=== PATIENT | male | born 1945 | race Caucasian/White ===

== ENCOUNTER 2024-11-25 22:07 | Inpatient (IN) | payer MEDICARE, OTHER, SELFPAY ==
[2024-11-25] VITALS (12 sets, daily range): BP systolic 143–185; BP diastolic 74–119; BMI 21.6; BMI 23.8
[2024-11-25 13:52] LABS: Hematocrit 40.9 % (39.0-52.0); Hemoglobin 13.6 g/dL (13.0-18.0); Mean Corp Hgb Conc. 33.3 g/dL (33.0-37.0); Mean Corpuscular Volume 88.1 fL (80.0-94.0); Nucleated Red Blood Cells % 0 % (-); Platelet Count 305 10^3/uL (130-400); Red Cell Dist. Width 18.1 % (11.5-14.5)
[2024-11-25 14:11] LABS: ALT (SGPT) 30 U/L (0-50); AST (SGOT) 21 U/L (17-59); Albumin 4.4 g/dl (3.5-5.0); Alkaline Phosphatase 75 U/L (38-126); Blood Urea Nitrogen 14 mg/dl (9-20); Calcium 8.8 mg/dl (8.4-10.2); Carbon Dioxide 19 mmol/L (22-30); Chloride 110 mmol/L (98-107); Glucose 147 mg/dl (70-99); Potassium 4.1 mmol/L (3.5-5.1); Sodium 140 mmol/L (135-145); Total Protein 8.5 g/dl (6.3-8.2); eGFR > 60.00
[2024-11-25 14:22] LABS: Troponin I 0.021 ng/ml
--- NOTE | 2024-11-25 18:20 | ED.GENMED ---
History of Present Illness
General
Chief Complaint: Back Pain
Source: patient, spouse and family
Exam Limitations: none
Time Seen by Provider: 11/25/24 17:59
Nursing documentation reviewed up to this point in time: agreed with
History of Present Illness
History of Present Illness:
Patient to ED accompanied by daughter and spouse. Daughter states she was with patient yesterday and he was feeling well. Overnight he developed vomiting. Today daughter tried to speak with him over the phone but he seemed confused. He is
complaining of back pain. Brought to ED via EMS for eval. Daughter also notes that he has an infection on his left forearm. Unknown cause. He was seen at on saturday. I&D performed, placed on Bactrim DS and Mupiricin ointment. Still with
drainage but less than day 1. No surrounding erythema.
Past History
Past History
ED Past Medical History: Cancer (multiple myeloma), HTN and Hypercholesterolemia
ED Past Surgical History: Orthopedic
Review of Systems
Review of Systems
Allergies reviewed?: Yes
All Other Systems: ROS reviewed and negative except as documented in HPI and ROS
Constitutional: Reports no symptoms
EENT: Reports no symptoms
Respiratory: Reports no symptoms
Cardiac: Reports no symptoms
ABD/GI: Reports vomiting
: Reports no symptoms
Musculoskeletal: Reports back pain
Skin: Reports other (abscess left forearm)
Neurological: Reports other (confused)
Psychiatric: Reports no symptoms
Phy Exam
General Physical Exam
General Presentation: moderate distress
General age: appears stated age
General Skin: warm and dry
General Habitus: normal
General Mental: alert
Cardiovascular Exam
Cardiovascular Exam: regular rate/rhythm and no edema
Pulmonary Exam
Pulmonary Exam: lungs clear and no respiratory distress
Gastrointestinal Exam
Gastrointestinal Exam: normal bowel sounds, non tender, soft and no organomegaly
Musculoskeletal Exam
Musculoskeletal Exam: full ROM and neuro vasc intact
Skin Exam
Skin Exam: warm/dry and other (abscess left lateral forearm. I&D saturday at , currently on Bactrim. Small amt of yellow discharge from site, culture obtained. No surrounding erythema. Minimal pain)
Psychiatric Exam
Psychiatric Exam: other (confused)
Course
Orders/Labs/Results
Orders:
Orders
11/25/24 13:29
Electrocardiogram (*1) Urgent
Reason for Study: Chest Pain
EKG- Treatment ONCE
11/25/24 13:37
Complete Blood Count/With Diff Urgent
Comprehensive Metabolic Panel Urgent
Troponin I Urgent
11/25/24 15:08
CT Head W/o Iv Contrast Urgent
Comment:
Reason For Exam: confusion
11/25/24 18:19
0.9% Sodium Chloride 1000 ml [Nss] 1,000 ml IV BOLUS
11/25/24 18:53
Urinalysis Reflex To Culture Urgent
Date Specimen was Collected: 11/25/24
Time Specimen was Collected: 18:53
Urine Microscopic Reflex Cult Urgent
Urine Culture Urgent
DOMINICK Source: U
Specimen Description:
Date Specimen was Collected: 11/25/24
Time Specimen was Collected: 18:53
Ketorolac [Toradol] 15 mg IV NOW STA
11/25/24 18:54
Wound Culture [Wound/Abscess/Other Culture] Urgent
DOMINICK Source: Arm
Specimen Description: Left
Date Specimen was Collected: 11/25/24
Time Specimen was Collected: 18:53
11/25/24 19:06
Lactic Acid Urgent
Blood Culture Urgent
DOMINICK Source: Blood/Venous
Specimen Description:
11/25/24 19:17
Blood Culture Urgent
DOMINICK Source: Blood/Venous
Specimen Description:
11/25/24 19:27
CT Abd/pel Without Iv Or Oral Urgent
Comment:
Reason For Exam: left flank pain
11/25/24 19:37
Acetaminophen [Tylenol/Feverall] 650 mg .ROUTE .STK-MED ONE
11/25/24 19:39
Cefepime HCl [Maxipime] 2,000 mg IV NOW STA
11/25/24 19:40
Acetaminophen [Tylenol/Feverall] 650 mg RECTAL NOW STA
11/25/24 21:35
Admit/Transfer Patient As Directed
Co-Sign Provider:
Level of Care: Inpatient admission
Assign to:: Medical/Surgical
Physician / Group: Ana
Diagnosis: pyelonephritis
Reason for Hospitalization: severe urinary tract infection
Expected length of stay greater than two midnights?: Yes
ELOS- Estimated Length of Stay in days: 2
I certify the patient meets the requirements for IP care: Yes
PRN Pain Medication Management As Directed
May give lesser potent ordered pain med per pt: Yes
preference::
Protocol:: Medication orders for pain may be administered in a
manner that supports deferring to patient preference
when the pt is:
- Requesting an ordered lesser potent pain medication.
Least to most potent pain medications are defined
as: acetaminophen < NSAID < tramadol < opioids
(morphine, oxycodone, hydromorphone).
- Requesting a lesser dose of the same medication IF
ORDERED.
- Requesting a less intrusive route of administration
if both routes are prescribed by the provider (PO <
IV).
11/25/24 21:37
Code Status As Directed
Resuscitation Status: Full Code
11/25/24 22:00
Flush (0.9% Sodium Chloride) [Flush (Nss)] See Dose Instructions IV PER PROTOCOL
Abnormal Lab Results
11/25/24 11/25/24
13:37 18:53
WBC 19.7 H 10^3/uL
(4.8-10.8)
RBC 4.64 L 10^6/uL
(4.70-6.10)
RDW 18.1 H %
(11.5-14.5)
Abs Immat Gran (auto) 0.1 H 10^3/uL
(0-0.05)
Absolute Neuts (auto) 18.4 H 10^3/uL
(1.4-6.5)
Absolute Lymphs (auto) 0.2 L 10^3/uL
(1.2-3.4)
Absolute Monos (auto) 0.9 H 10^3/uL
(0.1-0.6)
Immature Gran % 0.7 H %
(0-0.5)
Neutrophils % 93.4 H %
(42.2-75.2)
Lymphocytes % 0.9 L %
(20.5-51.1)
Chloride 110 H mmol/L
(98-107)
Carbon Dioxide 19 L mmol/L
(22-30)
Glucose 147 H mg/dl
(70-99)
Total Protein 8.5 H g/dl
(6.3-8.2)
Ur Occult Blood Reflex 3+ A
(Negative)
Leukocyte Esterase Rfl 3+ A
(Negative)
Urine RBC 3-6 A /HPF
(0-2)
Urine WBC (Reflex) 40-50 A /HPF
(0-5)
Urine Bacteria (Reflex) Few A
(Negative)
Urine Albumin (Reflex) 3+ A
(Neg - Trace)
11/25/24 13:37
11/25/24 13:37
Vital Signs
Initial and Last Documented VS:
Initial Vital Signs
Temp Pulse Resp BP Pulse Ox
98.2 F 96 16 174/97 97
11/25/24 13:25 11/25/24 13:25 11/25/24 13:25 11/25/24 13:25 11/25/24 13:25
Last Documented Vital Signs
Temp Pulse Resp BP Pulse Ox
100.1 F 72 17 157/75 97
11/25/24 21:27 11/25/24 21:15 11/25/24 21:15 11/25/24 21:00 11/25/24 21:15
*Pulse Oximetry
SaO2: 96
Oxygen Mode of Delivery: Room air
Patient hypoxic: no
*Critical Care Note
Total Time (30-74mins, 75-104mins- exclusive of procedures): Not Applicable
Update Note
Update Note:
Patient brought to ED for fever, confusion, weakness. Symptoms began with vomiting overnight. Family reports increasing weakness throughout the day and fever. Labs reviewed/ WBC 19, lactic normal. UA consistent with UTI. antibiotics started in
dept. CT report reviewed with patient and family. No evidence of obstruction, hydronephrosis or pyeloneprosis. Will be admitted to hospitalist. He has an abscess on left forearm that was drained on saturday. SMall amt of drainage noted tonight. No
surrounding erythema. Cuture sent.
ED Attending Note
-
Portions of this chart may have been created with voice recognition software.� Occasional wrong word or��sound alike� substitutions may have occurred due to the inherent limitations of voice recognition software.
Discharge Plan
Departure
Patient Disposition: Admit
Date of Disposition: 11/25/24
Time of Disposition: 20:34
Presentation/result/management discussed w/ accepting MD/DO: Hospitalist
Patient with high blood pressure during this ER visit?: No
Condition: Good
Covid-19: Not Applicable
Discharge Problem:
UTI (urinary tract infection)
Prescriptions:
No Action
latanoprost 0.005 % drops
1 drp BOTH EYES HS
sertraline 100 mg Tablet
100 mg PO BID
methylprednisolone 4 mg Tablet
4 mg PO BID
amlodipine 5 mg Tablet
5 mg PO DAILY
sulfamethoxazole-trimethoprim 800-160 mg Tablet
1 tab PO BID
Patient Comments:
11/25/2024, filled on 11/19/2024 and instructed to take 1 tablet BID for 10 days.
simvastatin 40 mg Tablet
40 mg PO HS
pantoprazole 20 mg Tablet,Delayed Release (Dr/Ec)
20 mg PO HS
tamsulosin 0.4 mg Capsule
0.4 mg PO BID
levothyroxine 50 mcg Tablet
50 mcg PO DAILY
gabapentin 300 mg Capsule
300 mg PO BID
diclofenac sodium 75 mg tablet,delayed release (DR/EC)
75 mg PO BID
omeprazole 20 mg Tablet,Delayed Release (Dr/Ec)
20 mg PO DAILY
Incruse Ellipta 62.5 mcg/actuation Blister With Device
1 inh INHALATION R DAILY
Fish Oil
1 cap PO BID
cyanocobalamin (vitamin B-12)
1 tab PO DAILY
Referrals:
Henrry Ryan MD [Family Provider, Internal Medicine]
Interventions
Interventions:
*Risk Screen - Suicide Last Done: 11/25/24 13:25
*Neglect/Abuse Screening Last Done: 11/25/24 13:25
ED-Musculoskeletal Assessment Last Done: 11/25/24 18:50
Discharge Date and Time
Print Language: KHMER
[2024-11-25 19:12] LABS: Urine Character Slightly Cloudy (Clear)
[2024-11-25] MEDS: TORADOL 15 MG IV (19:12)
[2024-11-25] MEDS: NSS 1000 IV (19:14)
[2024-11-25 19:32] LABS: Urine White Cell 40-50 /HPF (0-5)
[2024-11-25] MEDS: TYLENOL/FEVERALL 650 MG RECTAL (19:41)
[2024-11-25] MEDS: MAXIPIME 2000 MG IV (20:11)
--- NOTE | 2024-11-25 21:11 | HPS.HSE ---
Family Physician
-
Family Physician: Henrry Ryan
Chief Complaint
-
Back pain, fevers and confusion
History of Present Illness
This is a 79-year-old male who has a past medical history significant for hypertension, hyperlipidemia, GERD, hypothyroid, BPH, chronic back pain who presents to the emergency department from home with confusion and was found to be febrile in the
emergency department.
Patient has history of left for her abscess on Saturday. She was started on Bactrim on Saturday. She had a follow-up on Saturday with increasing swelling and erythema and had I&D. She has continued to be on Bactrim since then.
He reported that yesterday he had chills, back pain, nausea vomiting. Patient states he has been having urinary symptoms including urinary frequency and dysuria. He denies any hematuria. He denies history of UTIs and history of kidney stones. He
has not been having any diarrhea.
He denies any worsening redness of his forearm but states that the redness has not improved.
Patient called his daughter today and that while on the phone she noticed that he was incoherent but was requesting to go to the emergency department which is atypical for him.
He has otherwise been compliant with his medications, alert and orient x 3 at baseline and lives with his spouse with independence of ADLs.
On arrival in the emergency department he was initially afebrile, now has a temperature of 102.5. Blood pressure is stable at 150/70 with pulse of 76 and was satting 94% on room air. CT of the head was unremarkable. CT of the abdomen pelvis was
also mostly unremarkable with no evidence of nephrolithiasis or hydronephrosis, he does have some evidence of bladder cystitis. The noncontrast CT shows no biliary, gallbladder or liver or pancreatic abnormalities and no evidence of appendicitis
He has leukocytosis to 19,000 with normal hemoglobin and platelets. Electrolytes were normal. BUN/creatinine were stable. Glucose was normal.
UA was markedly positive with WBCs, leukocyte esterase and a few bacteria.
Medical History
Past Medical History
Past Medical History: Reports HTN, Hypercholesterolemia and Hypothyroidism
Past Surgical History: Reports Orthopedic (r Shoulder surgery)
Social History
Tobacco: Former Smoker
Alcohol: None
Drug: None
Personal:
Living: With Family
Employment: Retired
Family History
Family History: Not pertinent
Allergies / Home Medications
Allergies reflects when Allergies were last updated in [facility].
Home Medications with original date entered in [facility]
Allergy/Medication List:
Allergies
Allergy/AdvReac Type Severity Reaction Status Date / Time
No Known Allergies Allergy Unverified 11/25/24 13:28
Tamsulosin 0.4 mg capsule, 0. 8 mg p.o. daily
Simvastatin 40 mg tablet, 40 mg p.o. at bedtime
Sertraline 100 mg tablet, 200 mg p.o. daily
Omeprazole 20 mg tablet, 20 mg p.o. daily
Levothyroxine 50 mcg tablet, 50 mcg p.o. daily
Amlodipine 5 mg tablet, 5 mg p.o. daily
Review of Systems
-
Constitutional: Reports Chills
EENT: Reports No Symptoms
Respiratory: Reports No Symptoms
Cardiac: Reports No Symptoms
Abdomen/GI: Reports Vomiting
: Reports Dysuria, Flank Pain and Incontinence; Denies Dark Urine
Musculoskeletal: Reports Other (No back pain)
Skin: Reports Other (Left forearm abscess status post I&D, open wound incision with surrounding erythema, no induration)
Neurological: Reports No Symptoms
Endocrine: Reports No Symptoms
Hematologic/Lymphatic: Reports No Symptoms
Psych: Reports No Symptoms
Physical Exam
Vital Signs
Vital Signs
Temp Pulse Resp BP Pulse Ox
102.5 F H 76 22 157/74 94
11/25/24 19:40 11/25/24 20:30 11/25/24 20:30 11/25/24 20:16 11/25/24 20:30
Physical Exam
General: Well Developed, Well Nourished and No Apparent Distress
HEENT: NormoCephalic, Moist mucous membranes and Atraumatic
Respiratory: Clear
Cardiac: S1/S2 and Regular Rhythm; No Murmur or Rub
GI: Soft, Non Tender, Non Distended and Normal Bowel Sounds; No Organomegaly
Rectal: Deferred by Provider
Musculoskeletal: No Clubbing, No Cyanosis and No Edema
Skin: Rash (A small nodular lesion on the left forearm with slight palpable stool at drainage. No surrounding erythema. No induration. Minimally tender to palpation.)
Neuro: AO x 3 and Nonfocal/grossly intact
Psych: Calm
Laboratory Results
-
11/25/24 13:37
11/25/24 13:37
Laboratory Results
Lactic Acid 1.6 mmol/L (0.7-2.0) 11/25/24 19:06
Total Bilirubin 0.8 mg/dl (0.2-1.3) 11/25/24 13:37
AST 21 U/L (17-59) 11/25/24 13:37
ALT 30 U/L (0-50) 11/25/24 13:37
Alkaline Phosphatase 75 U/L (38-126) 11/25/24 13:37
Troponin I 0.021 ng/ml 11/25/24 13:37
Data Reviewed
-
CT Scan: Report Reviewed by me
Lab Data: Labs Reviewed by me
Old Records: Reviewed
Impression/Plan
-
IMPRESSION:
79-year-old with history of hypertension hyperlipidemia hypothyroid and BPH presenting to the emergency department with confusion and found to have a fever. In addition patient reports back pain/flank pain and urinary symptoms that started 1 day
ago with associated chills. There was associated nausea vomiting x 1. His abdominal exam is benign denies any diarrhea. LFTs normal. CT scan unremarkable. There are no stones and no urinary obstruction. There are also no intra-abdominal
pathologies but this was a noncontrast. CT of the head was negative. He has been on Bactrim for about 4 days. The abscess on the left forearm seems resolving without any drainage. He did have cultures done previously at urgent care and repeated
attempted cultures done in the ED. Labs notable for significant leukocytosis to 19 otherwise labs are stable and lactic acid is negative. UA is somewhat positive with leukocyte esterase and WBCs with few bacteria but negative nitrites. Given few
bacteria cannot rule out prostatitis. No recent instrumentation.
PLAN:
UTI/prostatitis -patient has been on Bactrim yet as developed this back pain and urinary symptoms consistent with prostatic versus cystitis. No risk factors for MRSA and no no risk factors for Pseudomonas. He is significantly ill but not
critically so.
- admit to telemetry
- blood cultures
- negative covid/flu
- urine cultures
- IV cefepime 2g q 12 for now
- monitor i/os and urinary retention
- continue IV fluids with LR
Left arm abscess - No drainable collection. No erythema. Unlikely source of sepsis.
- on cefepime
- s/p wound culture
- check mrsa swab
BPH
- continue tamulosin
Hypothyrod
- continue synthroid 50 mcg
DVT PPX - lovenox sq
Code status - Full Code
[2024-11-25] MEDS: PROTONIX PO (23:21)
[2024-11-25] MEDS: LR 1000 IV (23:27)
[2024-11-25] MEDS: PROTONIX 20 MG PO (23:27)
[2024-11-25] MEDS: LIPITOR 20 MG PO (23:27)
[2024-11-25] MEDS: ULTRAM 50 MG PO (23:27)
[2024-11-25] MEDS: XALATAN OPHTHALMIC SOLUTION 1 DROP BOTH EYES (23:38)
[2024-11-25] MEDS: TYLENOL 650 MG PO (23:54)
[2024-11-26] VITALS (7 sets, daily range): BP systolic 96–165; BP diastolic 54–83; PULSE 61; O2SAT 99; BMI 23.9
[2024-11-26] MEDS: MAXIPIME 1000 MG IV ×4 (01:17→19:57)
[2024-11-26] MEDS: STERILE WATER FOR INJECTION 10 ML IV ×4 (01:17→19:57)
[2024-11-26] MEDS: SYNTHROID 50 MCG PO (05:41)
[2024-11-26] MEDS: ULTRAM 50 MG PO ×3 (06:09→20:37)
[2024-11-26 06:50] LABS: Hematocrit 38.0 % (39.0-52.0); Hemoglobin 12.4 g/dL (13.0-18.0); Mean Corp Hgb Conc. 32.6 g/dL (33.0-37.0); Mean Corpuscular Volume 88.8 fL (80.0-94.0); Platelet Count 249 10^3/uL (130-400); Red Cell Dist. Width 17.9 % (11.5-14.5)
[2024-11-26 07:08] LABS: Blood Urea Nitrogen 13 mg/dl (9-20); Calcium 8.6 mg/dl (8.4-10.2); Carbon Dioxide 20 mmol/L (22-30); Chloride 111 mmol/L (98-107); Estimated Creatinine Clearance 86 ml/min; Glucose 115 mg/dl (70-99); Potassium 3.6 mmol/L (3.5-5.1); Sodium 140 mmol/L (135-145); eGFR > 60.00
[2024-11-26] MEDS: SPIRIVA RESPIMAT 2.5 MCG 2 PUFF INH (07:31)
[2024-11-26] MEDS: FLOMAX 0.8 MG PO (09:06)
[2024-11-26] MEDS: NEURONTIN 300 MG PO ×2 (09:07→19:55)
[2024-11-26] MEDS: NORVASC 5 MG PO (09:07)
[2024-11-26] MEDS: ZOLOFT 100 MG PO ×2 (09:07→19:56)
[2024-11-26] MEDS: VOLTAREN 75 MG PO ×2 (09:07→19:55)
[2024-11-26] MEDS: TYLENOL 650 MG PO ×2 (09:08→18:01)
[2024-11-26] MEDS: FLUSH (NSS) 2 FLUSH IV (09:08)
[2024-11-26] MEDS: SENOKOT-S 1 TABLET PO ×2 (09:16→19:56)
[2024-11-26] MEDS: LR 1000 IV ×2 (10:25→23:49)
--- NOTE | 2024-11-26 11:40 | W.PN.HOSP.TC ---
Today's Communication/Plan
-
ID eval
vancomycin added
await further culture data
IVF
Monitor for retention
trend wbc/fever curve
Assessment / Plan
Assessment / Plan
General: Well Developed, Well Nourished and No Apparent Distress
HEENT: NormoCephalic, Moist mucous membranes and Atraumatic
Respiratory: Clear
Cardiac: S1/S2 and Regular Rhythm; No Murmur or Rub
GI: Soft, Non Tender, Non Distended and Normal Bowel Sounds; No Organomegaly
Rectal: Deferred by Provider
Musculoskeletal: No Clubbing, No Cyanosis and No Edema
Skin: left forearm rash covered in dressing
Neuro: AO x 3 and Nonfocal/grossly intact
Psych: Calm
IMPRESSION:
79-year-old with history of hypertension hyperlipidemia hypothyroid and BPH presenting to the emergency department with confusion and found to have a fever. In addition patient reports back pain/flank pain and urinary symptoms that started 1 day
ago with associated chills. There was associated nausea vomiting x 1. His abdominal exam is benign denies any diarrhea. LFTs normal. CT scan unremarkable. There are no stones and no urinary obstruction. There are also no intra-abdominal
pathologies but this was a noncontrast. CT of the head was negative. He has been on Bactrim for about 4 days. The abscess on the left forearm seems resolving without any drainage. He did have cultures done previously at urgent care and repeated
attempted cultures done in the ED. Labs notable for significant leukocytosis to 19 otherwise labs are stable and lactic acid is negative. UA is somewhat positive with leukocyte esterase and WBCs with few bacteria but negative nitrites. Given few
bacteria cannot rule out prostatitis. No recent instrumentation.
PLAN:
Sepsis likely 2/2 UTI/prostatitis vs staph bacteremia (leukocytosis, fever, tachycardia)poa
patient has been on Bactrim yet as developed this back pain and urinary symptoms consistent with prostatic versus cystitis.
- blood cultures with [facility] currently-await for identification & susceptibility results. Unclear if contamination or not. Await data from micro lab
- negative covid/flu
- urine cultures
- IV cefepime. Vancomycin added.
- monitor i/os and urinary retention
- continue IV fluids with LR
- Check TTE
- ID eval
Left arm abscess - No drainable collection. No erythema.
- on cefepime
- s/p wound culture
- check mrsa swab
BPH With urinary retention
- continue tamulosin
-Bladder scan and straight cath protocol
Hypothyroid
- continue Synthroid 50 mcg
Chronic back pain/neuropathy
-cont home regimen
- OOB
Mood disorder
-cont sertraline
Primary HTN
-Cont norvasc
PT ordered
DVT PPX - lovenox sq
Code status - Full Code
Anticipated Discharge: > 48 hours
Subjective/Interval History
-
Date of Service: November 26, 2024
states of severe chills last night
states of back pain
require straight cath earlier
Objective Data
-
Labs:
Laboratory Results
11/26/24
06:15
WBC 18.6 H
Hgb 12.4 L
Hct 38.0 L
Plt Count 249
Sodium 140
Potassium 3.6
Chloride 111 H
Carbon Dioxide 20 L
BUN 13
Creatinine 0.6 L
Glucose 115 H
Calcium 8.6
Vital Signs:
Vital Signs
Temp Pulse Resp BP Pulse Ox
98.4 F 70 16 125/75 96
11/26/24 10:26 11/26/24 09:07 11/26/24 07:39 11/26/24 09:07 11/26/24 07:39
I&O
11/25/24 11/26/24 11/27/24
06:59 06:59 06:59
Intake Total 960 / 960 240 / 240
Output Total 695 / 695
Balance 265 / 265 240 / 240
Data Reviewed
-
Total Time Spent with Patient (in minutes): 55
--- NOTE | 2024-11-26 11:59 | PHA.VAN.IN ---
Assessment
- Assessment
Renal Function: Appears similar to baseline
Concomitant Antimicrobials: cefepime
AUC Dosing Plan
- Dosing Variables
Dosing Weight (kg): 63
Dosing CrCl (ml/min): 86
Vd coefficient (L/kg): 0.7
- Empiric Dosing
Maintenance Regimen: Vanc 750mg x1 now then Q12H starting at 1800 in lieu of load
Estimated AUC (mcg*h/mL): 466
Estimated Peak (mcg*h/mL): 28.5
Estimated Trough (mcg/ml): 12.4
Estimated Half Life (H): 9.1
- Monitoring
No levels ordered at this time: consider levels in next few days
Pharmacokinetics Vancomycin I
- -
Patient Age: 79
Patient Sex: Male
Vancomycin Day #: 1
Indication: Bacteremia
Requesting Provider: Dr. Marquez
Pertinent Antimicrobial Allergies:
NKDA
Height / Weight:
Height 5 ft 4 in
Actual Weight 63.163 kg
- Vital Signs / Lab Results
Temp Pulse Resp BP Pulse Ox
98.4 F 70 16 125/75 96
11/26/24 10:26 11/26/24 09:07 11/26/24 07:39 11/26/24 09:07 11/26/24 07:39
Lab Results - Hematology
11/25/24 11/26/24
13:37 06:15
WBC 19.7 H 18.6 H
Lab Results - Chemistry
11/25/24 11/26/24
13:37 06:15
BUN 14 13
Creatinine 0.7 0.6 L
Estimated Creat Clear 86
Albumin 4.4
11/25/24
19:06
Lactic Acid 1.6
Lab Results - Urine
11/25/24
18:53
Urine Nitrite (Reflex) Negative
Leukocyte Esterase Rfl 3+ A
Urine WBC (Reflex) 40-50 A
Ur Squamous Epith Cells 3-5
Urine Bacteria (Reflex) Few A
Microbiology Results
11/25/24 19:17 Blood Culture - Preliminary
Blood/Venous Staphylococcus aureus
Gram Stain - Preliminary
11/25/24 19:06 Blood Culture - Preliminary
Blood/Venous Positive culture in progress
Gram Stain - Preliminary
11/25/24 18:54 Gram Stain - Preliminary
Arm - Left
[2024-11-26] MEDS: VANCOCIN 150 IV ×2 (12:39→17:59)
--- NOTE | 2024-11-26 13:00 | PTCARENOTE ---
Pt's bladder scan result at 1215 17ml. RN repeated bladder scan at 1245 and result was 84ml. Pt has not voided since straight cath this am at 0615. Made Dr. Marquez aware of bladder scan result, will continue to monitor.
--- NOTE | 2024-11-26 16:59 | CM ---
Addendum entered by Jeanette Sherman 11/26/24 17:08:
Called Admissions and requested home address change; patient lives in [place], [place]
Original Note:
Met with patient and family ( and daughter Oliver) at bedside; initial assessment completed
Pharmacy verified: [facility] @ [address] [place] [address]
Patient lives w/ ; one story home; 1 step to enter; railing present; bathroom has walk in shower with grab bar and seat
PLOF: independent with ambulation, step to enter, and ADLs
is not able to care for him if needed; daughters live 45 minutes away
SNF utilization 2019 after joint replacement; no home health utilization
One of his daughters will transport him home
PT recommended home health; patient is agreeable; no agency preference; referral sent to [facility] via [facility]
Plan: Discharge to home when medically stable with home felicity services
--- NOTE | 2024-11-26 17:30 | PTCARENOTE ---
Addendum entered by Sue Estes 11/26/24 19:19:
Pt voided 100ml of may urine at 1800, slightly odorous, clear. Pt denies painful urination.
Original Note:
Pt's bladder scan at 1630 134ml, still has not voided today since straight cath this morning. BP 97/54 at 1500, asymptomatic. On reassessment, BP 102/54. Made Dr. Marquez aware of above, order to increase IVF, will monitor.
--- NOTE | 2024-11-26 17:56 | CON.ID ---
Consultation
-
Date/Time Consultation Requested:
Date/Time Consultation Performed: november
Performing Provider: Gabi Amador MD
Reason for Consultation: bacteremia
Chief Complaint / Past History
Chief Complaint
fever,sweats, chills with rigors, in the setting of severe back pain and concern for UTI
History of Present Illness
The patient was complaining of fever/chills in setting of recent unknown etiology arm infection and was given Bactrim for treatment// his symptoms worsened with vomiting and confusion and was brought to the ED for evaluation
Past History
Past Medical History: Cancer (stable multiple myeloma), HTN, Hypothyroidism (BPH ) and Venous Hypertension
Past Surgical History: Orthopedic (shoulder surgery)
Allergy History:
No Known Allergies Allergy (Unverified 11/25/24 13:28)
Medications Reviewed: Yes
Current Antibiotics:
Was on Bactrim at home and currently is on Vancomycin
Social History
Tobacco: Former Smoker
Alcohol: None
Drug: None
Personal:
Living: With Family
Employment: Retired
Family History
Family History: Not Pertinent
Review of Systems
Review of Systems
General: Fever, Chills and Other (vomiting, sweats)
Endocrine: Weakness and Fatigue
Musculoskeletal: Other (back pain)
Skin / Hair / Nails: Lesions (infection of right arm etology uncertain)
Psychological: Other (confusion)
All systems: All other systems were reviewed and were negative
Vital Signs
Temp Pulse Resp BP Pulse Ox
98.5 F 91 18 109/67 95
11/26/24 15:27 11/26/24 17:40 11/26/24 15:27 11/26/24 17:40 11/26/24 17:40
Physical Exam
Physical Exam
Constitutional: No Acute Distress, Well Developed, Comfortable, Acutely Ill and Non-toxic
Head: Normocephalic
Eyes: Pupils Equal, Pupils Round, No Conjunctival Hemorrhage and Sclera Anicteric
Pharynx: Benign
Oral: No Thrush and No Ulcers
Cardiovascular: Regular Rate
Pulmonary: Clear and Non Labored
Gastrointestinal: Soft, Non Tender, Non Distended, Decreased Bowel Sounds, No Rebound and No Guarding
Extremities: Other (left arm infection being treated with Bactrim prior to admission)
Skin: Warm and Dry (left arm infection)
Wound: Other (left arm infection)
Neurological: Awake, Alert, Oriented, AO x 3 and No Motor Deficits
Psychological: Calm
Lines: PIV
Lab / Diagnostic Study Results
11/26/24 06:15
11/26/24 06:15
Abs Immat Gran (auto) 0.1 10^3/uL (0-0.05) H 11/25/24 13:37
Absolute Neuts (auto) 18.4 10^3/uL (1.4-6.5) H 11/25/24 13:37
Absolute Lymphs (auto) 0.2 10^3/uL (1.2-3.4) L 11/25/24 13:37
Absolute Monos (auto) 0.9 10^3/uL (0.1-0.6) H 11/25/24 13:37
Absolute Basos (auto) 0.0 10^3/uL (0-0.2) 11/25/24 13:37
Immature Gran % 0.7 % (0-0.5) H 11/25/24 13:37
Neutrophils % 93.4 % (42.2-75.2) H 11/25/24 13:37
Lymphocytes % 0.9 % (20.5-51.1) L 11/25/24 13:37
Monocytes % 4.8 % (1.7-9.3) 11/25/24 13:37
Eosinophils % 0.0 % (0-6) 11/25/24 13:37
Basophils % 0.2 % (0-2) 11/25/24 13:37
Lactic Acid 1.6 mmol/L (0.7-2.0) 11/25/24 19:06
Ur Squamous Epith Cells 3-5 /LPF (Few) 11/25/24 18:53
Microbiology Results
Micro:
11/25/24 19:17 Blood Culture - Preliminary
Blood/Venous Staphylococcus aureus
Gram Stain - Preliminary
11/25/24 19:06 Blood Culture - Preliminary
Blood/Venous Positive culture in progress
Gram Stain - Final
11/25/24 18:54 Wound Culture - Pending
Arm - Left Gram Stain - Preliminary
11/26/24 00:00 MRSA Screen - Pending
Nose
11/25/24 18:53 Urine Culture - Pending
Urine
Assessment / Plan
1.Bacteremia with Staphylococcus unknown MRSA status ,fever, leukocytosis WBC 19.7 on admission T 102.5, Vancomycin for now pending culture sensitivities
2. Left arm infection etiology unknown by patient or family with dressing intact was taking Bactrim
3. History of Multiple Myeloma currently being observed without treatment
4. Multiple medical co-morbidities with HTN, BPH, hypothyroid,BPH, HLD
5. wound care for left forearm
6. Backpain with uncertain etiology
Care Review
Plan reviewed with: Other (discussed with family with priyank and sitting at bedside)
Total Time Spent with Patient (in minutes): 55
[2024-11-26] MEDS: LOVENOX 40 MG SC (18:01)
--- NOTE | 2024-11-26 19:03 | CON.ID ---
Consultation
-
Date/Time Consultation Requested: November
Date/Time Consultation Performed: November
Requesting Provider: Dr Marquez
Performing Provider: Gabi Amador MD
Reason for Consultation: bacteremia
Chief Complaint / Past History
Chief Complaint
admitted with back pain
History of Present Illness
The patient complained of back pain but family noted confusion and left forearm wound with etiology unknown which was being treated with Bactrim
Past History
Past Medical History: Cancer (multiple myeloma), Hypercholesterolemia, Hypothyroidism and Venous Hypertension (BPH)
Additional Past Surgical History:
left shoulder surgery
Allergy History:
No Known Allergies Allergy (Unverified 11/25/24 13:28)
Social History
Tobacco: Former Smoker
Alcohol: None
Drug: None
Personal:
Living: With Family
Employment: Retired
Family History
Family History: Not Pertinent
Review of Systems
Review of Systems
General: Fever, Chills and Other (sweats, rigors, back pain of severe nature)
Gasteroenterology: Weight Loss (not eating as much)
Musculoskeletal: Other (right shoulder pain)
All systems: All other systems were reviewed and were negative
Vital Signs
Temp Pulse Resp BP Pulse Ox
98.5 F 70 18 102/54 95
11/26/24 15:27 11/26/24 17:02 11/26/24 15:27 11/26/24 17:02 11/26/24 15:27
Physical Exam
Physical Exam
Constitutional: No Acute Distress, Well Developed, Comfortable and Non-toxic
Head: Normocephalic
Eyes: Pupils Equal, Pupils Round, No Conjunctival Hemorrhage and Sclera Anicteric
Pharynx: Benign
Oral: No Thrush and No Ulcers
Cardiovascular: Regular Rate
Pulmonary: Clear and Non Labored
Gastrointestinal: Soft, Non Tender, Non Distended, Normal Bowel Sounds, No Rebound and No Guarding
Extremities: Other (dressing on left arm at site of wound of unknown etiology)
Skin: Warm and Dry
Wound: None (left forearm)
Neurological: Awake, Alert, Oriented, AO x 3 and No Motor Deficits
Psychological: Calm
Lines: PIV
Lab / Diagnostic Study Results
11/26/24 06:15
11/26/24 06:15
Abs Immat Gran (auto) 0.1 10^3/uL (0-0.05) H 11/25/24 13:37
Absolute Neuts (auto) 18.4 10^3/uL (1.4-6.5) H 11/25/24 13:37
Absolute Lymphs (auto) 0.2 10^3/uL (1.2-3.4) L 11/25/24 13:37
Absolute Monos (auto) 0.9 10^3/uL (0.1-0.6) H 11/25/24 13:37
Absolute Basos (auto) 0.0 10^3/uL (0-0.2) 11/25/24 13:37
Immature Gran % 0.7 % (0-0.5) H 11/25/24 13:37
Neutrophils % 93.4 % (42.2-75.2) H 11/25/24 13:37
Lymphocytes % 0.9 % (20.5-51.1) L 11/25/24 13:37
Monocytes % 4.8 % (1.7-9.3) 11/25/24 13:37
Eosinophils % 0.0 % (0-6) 11/25/24 13:37
Basophils % 0.2 % (0-2) 11/25/24 13:37
Lactic Acid 1.6 mmol/L (0.7-2.0) 11/25/24 19:06
Ur Squamous Epith Cells 3-5 /LPF (Few) 11/25/24 18:53
Microbiology Results
Micro:
11/25/24 19:17 Blood Culture - Preliminary
Blood/Venous Staphylococcus aureus
Gram Stain - Preliminary
11/25/24 19:06 Blood Culture - Preliminary
Blood/Venous Positive culture in progress
Gram Stain - Final
11/25/24 18:54 Wound Culture - Pending
Arm - Left Gram Stain - Preliminary
11/26/24 00:00 MRSA Screen - Pending
Nose
11/25/24 18:53 Urine Culture - Pending
Urine
Assessment / Plan
1.Bacteremia with Staphylococcus unknown MRSA status ,fever, leukocytosis WBC 19.7 on admission T 102.5, Vancomycin for now pending culture sensitivities
2. Left arm infection etiology unknown by patient or family with dressing intact was taking Bactrim
3. History of Multiple Myeloma currently being observed without treatment
4. Multiple medical co-morbidities with HTN, BPH, hypothyroid,BPH, HLD
5. wound care for left forearm
6. Backpain with uncertain etiology
Care Review
Total Time Spent with Patient (in minutes): 45
[2024-11-26] MEDS: LIPITOR 20 MG PO (19:55)
[2024-11-26] MEDS: PROTONIX 20 MG PO (19:56)
[2024-11-26] MEDS: XALATAN OPHTHALMIC SOLUTION 1 DROP BOTH EYES (19:57)
[2024-11-27] MEDS: MAXIPIME 1000 MG IV ×4 (02:16→19:45)
[2024-11-27] MEDS: STERILE WATER FOR INJECTION 10 ML IV ×4 (02:16→19:49)
[2024-11-27] MEDS: ULTRAM 50 MG PO ×2 (04:16→18:22)
[2024-11-27] MEDS: SYNTHROID 50 MCG PO (04:16)
[2024-11-27 06:00] VITALS: BMI 24.8
[2024-11-27] MEDS: VANCOCIN 150 IV ×2 (06:12→18:22)
[2024-11-27 06:53] VITALS: BP 99/55
[2024-11-27] MEDS: SPIRIVA RESPIMAT 2.5 MCG 2 PUFF INH (07:30)
[2024-11-27 08:08] LABS: Hematocrit 31.9 % (39.0-52.0); Hemoglobin 10.4 g/dL (13.0-18.0); Mean Corp Hgb Conc. 32.6 g/dL (33.0-37.0); Mean Corpuscular Volume 89.6 fL (80.0-94.0); Nucleated Red Blood Cells % 0 % (-); Platelet Count 178 10^3/uL (130-400); Red Cell Dist. Width 17.8 % (11.5-14.5)
[2024-11-27 08:27] LABS: ALT (SGPT) 18 U/L (0-50); AST (SGOT) 17 U/L (17-59); Albumin 2.7 g/dl (3.5-5.0); Alkaline Phosphatase 56 U/L (38-126); Blood Urea Nitrogen 13 mg/dl (9-20); Calcium 7.9 mg/dl (8.4-10.2); Carbon Dioxide 20 mmol/L (22-30); Chloride 109 mmol/L (98-107); Estimated Creatinine Clearance 86 ml/min; Glucose 127 mg/dl (70-99); Potassium 3.6 mmol/L (3.5-5.1); Sodium 136 mmol/L (135-145); Total Protein 5.6 g/dl (6.3-8.2); eGFR > 60.00
--- NOTE | 2024-11-27 08:44 | PHA.VAN.FU ---
Vancomycin Assessment / Plan
- Assessment
Renal Function: Stable
WBC's are: Trending Down
In the past 24 hrs, patient has been: Afebrile
Concomitant Antimicrobials: cefepime
- Dosing Plan
Continue: Vanc 750mg Q12H
- Monitoring Plan
No level(s) ordered at this time: consider levels in next few days
- Follow Up
Pharmacy will continue to follow.
Vancomycin Follow UP
- -
Patient Age: 79
Patient Sex: Male
Vancomycin Day #: 2
Indication: Bacteremia
Requesting Provider: Dr. Marquez
Pertinent Antimicrobial Allergies:
NKDA
Height / Weight:
Height 5 ft 4 in
Actual Weight 65.544 kg
- Vital Signs / Lab Results
Temp Pulse Resp BP Pulse Ox
98.3 F 60 16 103/56 95
11/26/24 23:23 11/27/24 07:35 11/27/24 07:35 11/26/24 23:23 11/27/24 07:35
Lab Results - Hematology
11/25/24 11/26/24 11/27/24
13:37 06:15 07:05
WBC 19.7 H 18.6 H 8.5
Lab Results - Chemistry
11/25/24 11/26/24 11/27/24
13:37 06:15 07:05
BUN 14 13 13
Creatinine 0.7 0.6 L 0.6 L
Estimated Creat Clear 86 86
Albumin 4.4 2.7 L D
11/25/24
19:06
Lactic Acid 1.6
Microbiology Results
11/26/24 00:00 MRSA Screen - Final
Nose Staph aureus MRSA
11/25/24 19:06 Blood Culture - Preliminary
Blood/Venous Staphylococcus aureus
Gram Stain - Final
11/25/24 19:17 Blood Culture - Preliminary
Blood/Venous Staphylococcus aureus
Gram Stain - Preliminary
11/25/24 18:54 Gram Stain - Preliminary
Arm - Left
[2024-11-27] MEDS: FLOMAX 0.8 MG PO (08:45)
[2024-11-27] MEDS: NEURONTIN 300 MG PO ×2 (08:45→19:45)
[2024-11-27] MEDS: LR 1000 IV ×2 (08:45→18:26)
[2024-11-27] MEDS: ZOLOFT 100 MG PO ×2 (08:45→19:44)
[2024-11-27] MEDS: NORVASC PO (08:50)
[2024-11-27] MEDS: VOLTAREN 75 MG PO ×2 (08:52→19:45)
--- NOTE | 2024-11-27 09:46 | VNURNOTE ---
Home Health Liaison met with patient at bedside to discuss [facility] nurse/therapy, visits, schedule and homebound status. Patient is agreeable and understands that visits at home will be 2-3 x per week to assess and teach medical management. Patient is
aware that [facility] will contact them for start of care in 1-2 days after discharge from .
[facility] referral completed in [facility].
--- NOTE | 2024-11-27 10:44 | W.PN.HOSP.TC ---
Today's Communication/Plan
-
Await susceptibility results
Surveillance cultures ordered
Monitor back pain
Low threshold for further imaging
Continue with fluids
Continue with midodrine
Assessment / Plan
Assessment / Plan
General: Well Developed, Well Nourished and No Apparent Distress
HEENT: NormoCephalic, Moist mucous membranes and Atraumatic
Respiratory: Clear
Cardiac: S1/S2 and Regular Rhythm; No Murmur or Rub
GI: Soft, Non Tender, Non Distended and Normal Bowel Sounds; No Organomegaly
Rectal: Deferred by Provider
Musculoskeletal: No Clubbing, No Cyanosis and No Edema
Skin: left forearm rash covered in dressing
Neuro: AO x 3 and Nonfocal/grossly intact
Psych: Calm
IMPRESSION:
79-year-old with history of hypertension hyperlipidemia hypothyroid and BPH presenting to the emergency department with confusion and found to have a fever. In addition patient reports back pain/flank pain and urinary symptoms that started 1 day
ago with associated chills. There was associated nausea vomiting x 1. His abdominal exam is benign denies any diarrhea. LFTs normal. CT scan unremarkable. There are no stones and no urinary obstruction. There are also no intra-abdominal
pathologies but this was a noncontrast. CT of the head was negative. He has been on Bactrim for about 4 days. The abscess on the left forearm seems resolving without any drainage. He did have cultures done previously at urgent care and repeated
attempted cultures done in the ED. Labs notable for significant leukocytosis to 19 otherwise labs are stable and lactic acid is negative. UA is somewhat positive with leukocyte esterase and WBCs with few bacteria but negative nitrites. Given few
bacteria cannot rule out prostatitis. No recent instrumentation.
PLAN:
Sepsis likely 2/2 UTI/prostatitis vs staph bacteremia (leukocytosis, fever, tachycardia)poa
patient has been on Bactrim yet as developed this back pain and urinary symptoms consistent with prostatic versus cystitis.
- blood cultures with staph aureus. Awaiting susceptibility results. Surveillance cultures ordered.
- negative covid/flu
- urine cultures pending.
- MRSA positive
- IV cefepime. Vancomycin added.
- monitor i/os and urinary retention
- continue IV fluids with LR
- leukocytosis resolved
- ECHO EF of 55 to 60%. Normal regional wall motion. Mild concentric LVH. Normal diastolic function. Normal right ventricular size and function.
- If back pain worsens need to consider MR Lumbar spine
- ID eval
Left arm abscess - No drainable collection. No erythema.
- on cefepime
- s/p wound culture
- +mrsa
-Wound consult
Primary HTN now with hypotension
-hold norvasc
-started midodrine
Chronic back pain/neuropathy
-cont home regimen
-CT abd/pelvis-No suspicious osseous lesions. 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
- OOB
BPH With urinary retention
- continue tamulosin
-Bladder scan and straight cath protocol
Hypothyroid
- continue Synthroid 50 mcg
Mood disorder
-cont sertraline
History of multiple myeloma
Continue monitor creatinine hemoglobin closely
Abnormal lung finding
moderate subpleural intralobular septal thickening/fibrotic change, without gary honeycombing. OP f/u recommended
PT ordered
DVT PPX - lovenox sq
Code status - Full Code
Anticipated Discharge: > 48 hours
Subjective/Interval History
-
Date of Service: November 27, 2024
States of chronic lower back pain
No numbing or tingling in lower extremities
Objective Data
-
Labs:
Laboratory Results
11/27/24
07:05
WBC 8.5
Hgb 10.4 L
Hct 31.9 L
Plt Count 178 D
Sodium 136
Potassium 3.6
Chloride 109 H
Carbon Dioxide 20 L
BUN 13
Creatinine 0.6 L
Glucose 127 H
Calcium 7.9 L
Total Bilirubin 0.3
AST 17
ALT 18
Alkaline Phosphatase 56
Vital Signs:
Vital Signs
Temp Pulse Resp BP Pulse Ox
99.8 F 56 16 96/57 95
11/27/24 06:53 11/27/24 09:30 11/27/24 07:35 11/27/24 09:30 11/27/24 07:35
I&O
11/26/24 11/27/24 11/28/24
06:59 06:59 06:59
Intake Total 960 / 960 2400 / 2400
Output Total 695 / 695 850 / 850
Balance 265 / 265 1550 / 1550
Data Reviewed
-
Total Time Spent with Patient (in minutes): 55
--- NOTE | 2024-11-27 12:12 | WOUNDNOTE ---
LEFT LATERAL FOREARM
--- NOTE | 2024-11-27 12:13 | WOUNDNOTE ---
SACRUM/COCCYX/BUTTOCKS
--- NOTE | 2024-11-27 12:13 | WOUNDNOTE ---
LEFT ANTERIOR LOWER LEG
--- NOTE | 2024-11-27 12:32 | W.PN.ID1 ---
Date of Service
Date of Service: November 27, 2024
Today's Communication
continue Vancomycin, contact isolation for MRSA nares,
Assessment / Plan
1.Bacteremia with Staphylococcus, MRSA nares ,fever resolved, leukocytosis WBC 19.7 on admission T 102.5,current WBC 8.5, Vancomycin for now pending culture sensitivities
2. Left arm infection etiology unknown by patient or family with dressing intact was taking Bactrim
3. History of Multiple Myeloma currently being observed without treatment
4. Multiple medical co-morbidities with HTN, BPH, hypothyroid,BPH, HLD
5. wound care for left forearm
6. Backpain with uncertain etiology
Chief Complaint
-: Bacteremia (Staph positive blood cultures)
Subjective / Review of Systems
Review of Systems: No Fever, No Chills, No Headache, No Pharyngitis, No Stiff Neck, No Cough, No Sputum Production, No Chest Pain, No Palpitations, No Abdominal Pain, No Nausea, No Vomiting, No Diarrhea, No Dysuria and Other (left arm wound)
Vital Signs / Physical Exam
Vital Signs
Vital Signs
Temp Pulse Resp BP Pulse Ox
99.8 F 56 16 96/57 95
11/27/24 06:53 11/27/24 09:30 11/27/24 07:35 11/27/24 09:30 11/27/24 07:35
Physical Exam
Constitutional: No Acute Distress, Well Developed, Comfortable, Acutely Ill, Chronically Ill and Non-toxic
Head: Normocephalic
Eyes: Pupils Equal, Pupils Round, No Conjunctival Hemorrhage and Sclera Anicteric
Oropharyngeal: Benign
Gastrointestinal: Soft, Non Tender, Non Distended, Decreased Bowel Sounds, No Rebound and No Guarding
Extremities: Other (left forearm wound)
Skin: Warm and Dry (let forearm wound)
Wound: Other (left forearm wound)
Neurological: Awake, Alert, Oriented and AO x 3 (abnormal function right upper arm)
Psychological: Calm
Lines: PIV
Objective Data
Lab Data
Lab Results
11/27/24 07:05
11/27/24 07:05
Estimated Creat Clear 86 ml/min 11/27/24 07:05
Lactic Acid 1.6 mmol/L (0.7-2.0) 11/25/24 19:06
Total Bilirubin 0.3 mg/dl (0.2-1.3) 11/27/24 07:05
AST 17 U/L (17-59) 11/27/24 07:05
ALT 18 U/L (0-50) 11/27/24 07:05
Alkaline Phosphatase 56 U/L (38-126) 11/27/24 07:05
Most recent labs reviewed.
Microbiology: Report Reviewed
Micro Results:
11/25/24 18:54 Wound Culture - Preliminary
Arm - Left Staphylococcus aureus
Gram Stain - Preliminary
11/25/24 18:53 Urine Culture - Final
Urine
11/26/24 00:00 MRSA Screen - Final
Nose Staph aureus MRSA
11/25/24 19:06 Blood Culture - Preliminary
Blood/Venous Staphylococcus aureus
Gram Stain - Final
11/25/24 19:17 Blood Culture - Preliminary
Blood/Venous Staphylococcus aureus
Gram Stain - Preliminary
11/27/24 07:04 Blood Culture - Pending
Blood/Venous
Chest X-Ray: Report Reviewed
CT Scan: Report Reviewed
Care Review
Plan reviewed with: Nurse (contact isolation pending)
Total Time Spent with Patient (in minutes): 45
[2024-11-27 12:44] VITALS: BP 121/58
--- NOTE | 2024-11-27 12:50 | WOUNDNOTE ---
WO RN NOTE: Reviewed chart and met with patient. Consult received for infected left arm wound. At time of assessment patient reported some tenderness. The wound was noted to have a small amount of purulent drainage. No odor noted. See worklist for
details on measurements. Wound cleaned with Vashe and honey gel applied. Patient is on a static air overlay and heels and sacrum are intact. BRIANNA Valladares given update. Will confirm orders with Hospitalist. Will follow as needed.
--- NOTE | 2024-11-27 13:09 | TRANSFER ---
pt transferred to [facility]. room 424. report given to BRIANNA Becerril. pt's belongings sent with the pt.
--- NOTE | 2024-11-27 14:00 | PTCARENOTE ---
Patient transferred in to room 424. AAOx3. VSS. Able to make needs known. Oriented to unit and call edouard system. Will ring for assistance.
[2024-11-27 15:27] VITALS: BP 103/50
[2024-11-27 16:09] VITALS: BP 102/44; BP 105/55; BP 94/45; PULSE 60; O2SAT 98
[2024-11-27] MEDS: LOVENOX 40 MG SC (18:23)
[2024-11-27] MEDS: PROTONIX 20 MG PO (20:59)
[2024-11-27] MEDS: LIPITOR 20 MG PO (20:59)
[2024-11-27] MEDS: XALATAN OPHTHALMIC SOLUTION 1 DROP BOTH EYES (21:38)
[2024-11-27 23:33] VITALS: BP 156/79
[2024-11-28] MEDS: MAXIPIME 1000 MG IV ×2 (01:02→08:14)
[2024-11-28] MEDS: STERILE WATER FOR INJECTION 10 ML IV ×2 (01:02→08:14)
[2024-11-28] MEDS: ULTRAM 50 MG PO (01:27)
[2024-11-28] MEDS: VANCOCIN 150 IV ×2 (05:25→17:48)
[2024-11-28] MEDS: SYNTHROID 50 MCG PO (05:25)
[2024-11-28] MEDS: LR 1000 IV (05:26)
[2024-11-28 07:05] VITALS: BP 134/75
[2024-11-28] MEDS: SPIRIVA RESPIMAT 2.5 MCG 2 PUFF INH (08:05)
[2024-11-28] MEDS: VOLTAREN 75 MG PO (08:14)
[2024-11-28] MEDS: FLOMAX 0.8 MG PO (08:14)
[2024-11-28] MEDS: NEURONTIN 300 MG PO ×2 (08:14→19:34)
[2024-11-28] MEDS: ZOLOFT 100 MG PO ×2 (08:14→19:34)
--- NOTE | 2024-11-28 08:57 | PHA.VAN.FU ---
Vancomycin Assessment / Plan
- Assessment
Renal Function: Stable (last available SCr from 11/27)
WBC's are: WNL
In the past 24 hrs, patient has been: Afebrile
Concomitant Antimicrobials: cefepime
- Dosing Plan
Continue: vancomycin 750 mg q12h - first dose 11/26 ~1200
- Monitoring Plan
Peak Level: 11/28 2000 - after 6th dose
Trough Level: 11/29 529
- Follow Up
Pharmacy will continue to follow.
Vancomycin Follow UP
- -
Patient Age: 79
Patient Sex: Male
Vancomycin Day #: 3
Indication: Bacteremia
Requesting Provider: Dr. Marquez
Pertinent Antimicrobial Allergies:
NKDA
Height / Weight:
Height 5 ft 4 in
Actual Weight 65.544 kg
- Vital Signs / Lab Results
Temp Pulse Resp BP Pulse Ox
97.6 F 64 16 134/75 93
11/28/24 07:05 11/28/24 08:06 11/28/24 08:06 11/28/24 08:05 11/28/24 08:06
Lab Results - Hematology
11/25/24 11/26/24 11/27/24
13:37 06:15 07:05
WBC 19.7 H 18.6 H 8.5
Lab Results - Chemistry
11/25/24 11/26/24 11/27/24
13:37 06:15 07:05
BUN 14 13 13
Creatinine 0.7 0.6 L 0.6 L
Estimated Creat Clear 86 86
Albumin 4.4 2.7 L D
11/25/24
19:06
Lactic Acid 1.6
Microbiology Results
11/27/24 07:04 Blood Culture - Preliminary
Blood/Venous No Growth in 24 hours- Final report to follow
11/25/24 19:17 Blood Culture - Preliminary
Blood/Venous Staphylococcus aureus
Gram Stain - Preliminary
11/25/24 18:54 Wound Culture - Preliminary
Arm - Left Staphylococcus aureus
Gram Stain - Preliminary
11/25/24 18:53 Urine Culture - Final
Urine
11/26/24 00:00 MRSA Screen - Final
Nose Staph aureus MRSA
11/25/24 19:06 Blood Culture - Preliminary
Blood/Venous Staphylococcus aureus
Gram Stain - Final
[2024-11-28 09:12] LABS: Hematocrit 31.7 % (39.0-52.0); Hemoglobin 10.4 g/dL (13.0-18.0); Mean Corp Hgb Conc. 32.8 g/dL (33.0-37.0); Mean Corpuscular Volume 88.3 fL (80.0-94.0); Nucleated Red Blood Cells % 0 % (-); Platelet Count 203 10^3/uL (130-400); Red Cell Dist. Width 17.2 % (11.5-14.5)
[2024-11-28 09:44] LABS: ALT (SGPT) 25 U/L (0-50); AST (SGOT) 20 U/L (17-59); Albumin 2.8 g/dl (3.5-5.0); Alkaline Phosphatase 67 U/L (38-126); Blood Urea Nitrogen 9 mg/dl (9-20); Calcium 7.8 mg/dl (8.4-10.2); Carbon Dioxide 25 mmol/L (22-30); Chloride 107 mmol/L (98-107); Estimated Creatinine Clearance 86 ml/min; Glucose 128 mg/dl (70-99); Potassium 3.0 mmol/L (3.5-5.1); Sodium 138 mmol/L (135-145); Total Protein 5.8 g/dl (6.3-8.2); eGFR > 60.00
--- NOTE | 2024-11-28 09:56 | PTCARENOTE ---
Assumed care of pt from previous nurse. Pt denies pain. sleeping on and off this morning. dressing changed to lfa, see wound care orders. Pt call edouard is within reach, pt does not ring kacie, bed alarm in place. will cont to monitor.
--- NOTE | 2024-11-28 12:10 | W.PN.HOSP.TC ---
Addendum entered and electronically signed by Andrzej Hyatt MD 11/28/24 16:35:
Notified results of SEA L2/discitis. Cont Cefazolin but add back IV Vancomycin for now. Consult neurosurgery-discussed with neurosurgery today. Hold NSAIDs and Lovenox.
Original Note:
Today's Communication/Plan
-
IV antibiotics
Assessment / Plan
Assessment / Plan
General: Acute on chronically ill and No Apparent Distress
HEENT: NormoCephalic, Moist mucous membranes and Atraumatic
Respiratory: Clear
Cardiac: S1/S2 and Regular Rhythm; No Murmur or Rub
GI: Soft, Non Tender, Non Distended and Normal Bowel Sounds; No Organomegaly
Rectal: Deferred by Provider
Musculoskeletal: No Clubbing, No Cyanosis and No Edema
Skin: left forearm rash covered in dressing
Neuro: AO x 3 and Nonfocal/grossly intact
Psych: Calm
A/P:
Sepsis likely 2/2 staph bacteremia (MSSA) from left upper extremity
Change IV cefepime and vancomycin to IV cefazolin today on 11/28
Blood cultures sterile from 11/27 (last blood culture positive from 11/25)
MRSA colonized
WBC 18.6--> 8.3
Transthoracic Echo unremarkable
ID on board
Discussed with daughter Claudia over the phone today on 11/28
History of left arm abscess - No drainable collection. No erythema.
- on cefepime. 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
- s/p wound culture
- +mrsa
-Wound consult
Hypokalemia
-Replete and trend
Primary HTN now with hypotension
-hold norvasc
-started midodrine
- Stop IV fluids and reevaluate
Acute on chronic back pain/neuropathy
-cont home regimen
-CT abd/pelvis-No suspicious osseous lesions. 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
- OOB
- I have low suspicion for infection in the back but he continues to complain of back pain therefore is not unreasonable to obtain an MRI of the lumbar spine so we will order.
Right shoulder pain
- He has history of surgery on the right shoulder and also infections in the past
- Will obtain an x-ray of the right shoulder
BPH With urinary retention
- continue tamulosin
-Bladder scan and straight cath protocol
Hypothyroid
- continue Synthroid 50 mcg
Mood disorder
-cont sertraline
History of multiple myeloma
-Not on any treatment at this point
Abnormal lung finding
moderate subpleural intralobular septal thickening/fibrotic change, without gary honeycombing. OP f/u recommended
DVT PPX - lovenox sq
Code status - Full Code
Total time spent on today's encounter was 58 minutes which included time spent in counseling the patient/family regarding diagnosis and treatment plan as listed above, goals of care, and symptom management. Case was discussed with nursing staff,
specialists, and care coordinators/case management. All labs and imaging personally reviewed by me. Remainder the time spent in detailed review of previous records, lab data, imaging, and other medical provider documentation.
Anticipated Discharge: > 48 hours
Subjective/Interval History
-
Date of Service: November 28, 2024
Patient denies pain in his arm or nausea vomiting or diarrhea. He does endorses some back pain. Afebrile
Objective Data
-
Labs:
Laboratory Results
11/28/24
08:54
WBC 8.3
Hgb 10.4 L
Hct 31.7 L
Plt Count 203
Sodium 138
Potassium 3.0 L
Chloride 107
Carbon Dioxide 25
BUN 9
Creatinine 0.6 L
Glucose 128 H
Calcium 7.8 L
Total Bilirubin 0.3
AST 20
ALT 25
Alkaline Phosphatase 67
Vital Signs:
Vital Signs
Temp Pulse Resp BP Pulse Ox
97.6 F 64 16 134/75 93
11/28/24 07:05 11/28/24 08:06 11/28/24 08:06 11/28/24 08:05 11/28/24 08:06
I&O
11/27/24 11/28/24 11/29/24
06:59 06:59 06:59
Intake Total 2400 / 2400 480 / 480
Output Total 850 / 850 2750 / 2750
Balance 1550 / 1550 -2270 / -2270
[2024-11-28] MEDS: KCL 40 MEQ PO ×2 (15:07→17:49)
[2024-11-28] MEDS: ANCEF 10 IV ×2 (15:09→21:07)
[2024-11-28 15:34] VITALS: BP 147/68
[2024-11-28] MEDS: LR IV ×2 (16:09)
[2024-11-28] MEDS: PROTONIX 20 MG PO (21:07)
[2024-11-28] MEDS: LIPITOR 20 MG PO (21:07)
[2024-11-28] MEDS: XALATAN OPHTHALMIC SOLUTION 1 DROP BOTH EYES (21:07)
[2024-11-28 23:25] VITALS: BP 163/85
[2024-11-29] MEDS: ANCEF 10 IV ×3 (05:03→21:14)
[2024-11-29] MEDS: SYNTHROID 50 MCG PO (05:04)
[2024-11-29] MEDS: ULTRAM 50 MG PO (05:11)
[2024-11-29 06:00] VITALS: BMI 25.5
[2024-11-29 06:07] LABS: Hematocrit 36.5 % (39.0-52.0); Hemoglobin 12.0 g/dL (13.0-18.0); Mean Corp Hgb Conc. 32.9 g/dL (33.0-37.0); Mean Corpuscular Volume 88.8 fL (80.0-94.0); Nucleated Red Blood Cells % 0 % (-); Platelet Count 253 10^3/uL (130-400); Red Cell Dist. Width 17.2 % (11.5-14.5)
[2024-11-29] MEDS: VANCOCIN 150 IV (06:19)
[2024-11-29 07:26] LABS: Blood Urea Nitrogen 8 mg/dl (9-20); Calcium 8.0 mg/dl (8.4-10.2); Carbon Dioxide 24 mmol/L (22-30); Chloride 104 mmol/L (98-107); Estimated Creatinine Clearance 86 ml/min; Glucose 121 mg/dl (70-99); Potassium 4.2 mmol/L (3.5-5.1); Sodium 137 mmol/L (135-145); eGFR > 60.00
[2024-11-29] MEDS: FLOMAX 0.8 MG PO (07:32)
[2024-11-29] MEDS: ZOLOFT 100 MG PO ×2 (07:32→21:15)
[2024-11-29] MEDS: NEURONTIN 300 MG PO ×2 (07:32→21:15)
[2024-11-29 07:34] VITALS: BP 179/91
[2024-11-29] MEDS: SPIRIVA RESPIMAT 2.5 MCG 2 PUFF INH (07:47)
--- NOTE | 2024-11-29 08:35 | PHA.VAN.FU ---
Vancomycin Assessment / Plan
- Assessment
Renal Function: Stable
WBC's are: WNL
In the past 24 hrs, patient has been: Afebrile
Concomitant Antimicrobials: cefazolin
- Assessment - Therapeutic Drug Monitoring
Extrapolated Cmax (mcg/mL): 18.1
Peak level was drawn: Appropriately
Extrapolated Cmin (mcg/mL): 7.9
Trough Drawn: Appropriately
Levels were drawn: At steady state
Calculated AUC (mcg*h/mL): 297
Calculated ke: 0.0749
Calculated half life (H): 9.2
Calculated Vd (L): 67.37
Calculated Vanc CL (ml/min): 84.15
- Dosing Plan
Adjust Regimen to: 1000 mg q12h - start 1800 today
New Regimen Predicts: AUC (411), Peak (25), Trough (11)
- Monitoring Plan
No level(s) ordered at this time: may consider repeat levels in a few days if still on
- Follow Up
Pharmacy will continue to follow.
Vancomycin Follow UP
- -
Patient Age: 79
Patient Sex: Male
Vancomycin Day #: 4
Indication: Bacteremia
Requesting Provider: Dr. Marquez
Pertinent Antimicrobial Allergies:
NKDA
Height / Weight:
Height 5 ft 4 in
Actual Weight 67.404 kg
- Vital Signs / Lab Results
Temp Pulse Resp BP Pulse Ox
99.2 F 68 16 179/91 94
11/29/24 07:34 11/29/24 07:49 11/29/24 07:49 11/29/24 07:34 11/29/24 07:49
Lab Results - Hematology
11/27/24 11/28/24 11/29/24
07:05 08:54 05:31
WBC 8.5 8.3 9.5
Lab Results - Chemistry
11/27/24 11/28/24 11/29/24
07:05 08:54 05:31
BUN 13 9 8 L
Creatinine 0.6 L 0.6 L 0.5 L
Estimated Creat Clear 86 86 86
Albumin 2.7 L D 2.8 L
Microbiology Results
11/27/24 07:04 Blood Culture - Preliminary
Blood/Venous Positive culture in progress
Gram Stain - Preliminary
11/27/24 14:11 Blood Culture - Preliminary
Blood/Venous No Growth in 24 hours- Final report to follow
11/27/24 13:16 Blood Culture - Preliminary
Blood/Venous No Growth in 24 hours- Final report to follow
11/25/24 18:54 Wound Culture - Final
Arm - Left S aureus-Methicillin Sensitive
Gram Stain - Final
11/25/24 19:06 Blood Culture - Final
Blood/Venous S aureus-Methicillin Sensitive
Gram Stain - Final
11/25/24 19:17 Blood Culture - Final
Blood/Venous S aureus-Methicillin Sensitive
Gram Stain - Final
11/25/24 18:53 Urine Culture - Final
Urine
11/26/24 00:00 MRSA Screen - Final
Nose Staph aureus MRSA
Therapeutic Drug Monitoring
Vancomycin Peak 15.9 ug/ml (18-26) L 11/28/24 20:31
Vancomycin Trough 8.1 ug/ml (5-20) 11/29/24 05:31
--- NOTE | 2024-11-29 08:43 | W.PN.HOSP.TC ---
Today's Communication/Plan
-
IV antibiotics. Neurosurgery eval.
Assessment / Plan
Assessment / Plan
General: Acute on chronically ill and No Apparent Distress
HEENT: NormoCephalic, Moist mucous membranes and Atraumatic
Respiratory: Clear
Cardiac: S1/S2 and Regular Rhythm; No Murmur or Rub
GI: Soft, Non Tender, Non Distended and Normal Bowel Sounds; No Organomegaly
Rectal: Deferred by Provider
Musculoskeletal: No Clubbing, No Cyanosis and No Edema
Skin: left forearm rash covered in dressing
Neuro: AO x 3 and Nonfocal/grossly intact
Psych: Calm
A/P:
Sepsis likely 2/2 staph bacteremia (MSSA) from left upper extremity and lumbar spine discitis/spinal epidural abscess
Changed IV cefepime and vancomycin to IV cefazolin and vancomycin on 11/28
Blood cultures sterile from 11/27 (last blood culture positive from 11/25)
MRSA colonized
WBC 18.6--> 9.5
Transthoracic Echo unremarkable
ID on [id number] further recommendations
Discussed with daughter Claudia over the phone yesterday and today on 11/29
Neurosurgery eval pending
Spinal epidural abscess/discitis osteomyelitis of L1-L2
Continue IV antibiotic cefazolin and vancomycin
Neurosurgery consulted-discussed with neurosurgery yesterday-pending evaluation today
History of left arm abscess - No drainable collection. No erythema.
- On Bactrim BREAKER BOSS
- s/p wound culture
- +mrsa
-Wound consult
Hypokalemia
-Replete and trend
Primary HTN now with hypotension
-hold norvasc
-started midodrine
- Stop IV fluids and reevaluate
Right shoulder pain
- X-ray of the right shoulder reviewed
BPH With urinary retention
- continue tamulosin
-Bladder scan and straight cath protocol
Hypothyroid
- continue Synthroid 50 mcg
Mood disorder
-cont sertraline
History of multiple myeloma
-Not on any treatment at this point
Abnormal lung finding
moderate subpleural intralobular septal thickening/fibrotic change, without gary honeycombing. OP f/u recommended
DVT PPX -hold Lovenox since he will likely need spinal intervention. SCDs
Code status - Full Code
Total time spent on today's encounter was 58 minutes which included time spent in counseling the patient/family regarding diagnosis and treatment plan as listed above, goals of care, and symptom management. Case was discussed with nursing staff,
specialists, and care coordinators/case management. All labs and imaging personally reviewed by me. Remainder the time spent in detailed review of previous records, lab data, imaging, and other medical provider documentation.
Anticipated Discharge: > 48 hours
Subjective/Interval History
-
Date of Service: November 29, 2024
Patient still complains of back pain. Not much of shoulder pain now. No nausea vomiting or diarrhea. Afebrile
Objective Data
-
Labs:
Laboratory Results
11/29/24
05:31
WBC 9.5
Hgb 12.0 L
Hct 36.5 L
Plt Count 253 D
Sodium 137
Potassium 4.2 D
Chloride 104
Carbon Dioxide 24
BUN 8 L
Creatinine 0.5 L
Glucose 121 H
Calcium 8.0 L
Vital Signs:
Vital Signs
Temp Pulse Resp BP Pulse Ox
99.2 F 68 16 179/91 94
11/29/24 07:34 11/29/24 07:49 11/29/24 07:49 11/29/24 07:34 11/29/24 07:49
I&O
11/28/24 11/29/24 11/30/24
06:59 06:59 06:59
Intake Total 480 / 480 2064
Output Total 2750 / 2750 4050 / 4050
Balance -2269 / -2269 -1984 /
--- NOTE | 2024-11-29 12:06 | CON.NS ---
Consultation
-
Date/Time Consultation Performed: 11/29/24
Chief Complaint
-
Back pain neck pain
History of Present Illness
79-year-old male admitted with sepsis. He had a forearm infection. He has been on antibiotics as per infectious disease. He was complaining of back pain. An MRI of the lumbar spine was obtained with and without contrast which showed epidural
abscess and osteomyelitis discitis. He denies any radicular symptoms. Denies any weakness into his lower extremities. He is not providing a good history secondary to his mental status.
Review of Systems
-
10 point review of systems was completed is negative except stated in the HPI
Medication and Allergies
Home Medications
Home Medications
�Medication �Instructions �Recorded
Fish Oil 1 cap PO BID 11/25/24
amlodipine 5 mg tablet 5 mg PO DAILY 11/25/24
cyanocobalamin (vitamin B-12) 1 tab PO DAILY 11/25/24
diclofenac sodium 75 mg 75 mg PO BID 11/25/24
tablet,delayed release
gabapentin 300 mg capsule 300 mg PO BID 11/25/24
latanoprost 0.005 % eye drops 1 drp BOTH EYES HS 11/25/24
levothyroxine 50 mcg tablet 50 mcg PO DAILY 11/25/24
methylprednisolone 4 mg tablet 4 mg PO BID 11/25/24
omeprazole 20 mg tablet,delayed 20 mg PO DAILY 11/25/24
release
pantoprazole 20 mg tablet,delayed 20 mg PO HS 11/25/24
release
sertraline 100 mg tablet 100 mg PO BID 11/25/24
simvastatin 40 mg tablet 40 mg PO HS 11/25/24
sulfamethoxazole 800 1 tab PO BID 11/25/24
mg-trimethoprim 160 mg tablet
tamsulosin 0.4 mg capsule 0.4 mg PO BID 11/25/24
umeclidinium 62.5 mcg/actuation 1 inh inhalation R DAILY 11/25/24
blister powder for inhalation
(Incruse Ellipta)
Allergies
Allergies
Allergy/AdvReac Type Severity Reaction Status Date / Time
No Known Allergies Allergy Unverified 11/25/24 13:28
Physical Exam
-
Exam:
Awake and alert however drifts back to sleep quickly
Moving all extremities x 4, 5 out of 5 upper and lower extremity strength
Sensory intact
Reflexes normal
Respirations are even and unlabored
IMPRESSION:
Left paracentral epidural abscess posterior to the L2 vertebral body.
Associated meningeal inflammation/ meningitis.
Suspicion for mild/early discitis/osteomyelitis at L1-2. No paraspinal fluid collection to indicate paraspinal abscess.
Problems
-
Problem Status Onset Code
UTI (urinary tract infection) Acute N39.0
Assessment / Plan
-
Osteomyelitis/discitis, epidural abscess
1. No neurosurgical interventions needed as patient has normal neurologic exam in his lower extremities with normal motor strength and no radicular symptoms
2. Antibiotics as per infectious disease
3. Notify neurosurgery if any change in neurologic exam
--- NOTE | 2024-11-29 12:37 | W.PN.ID1 ---
Date of Service
Date of Service: November 29, 2024
Today's Communication
Continue antibiotics. See below�
Assessment / Plan
MSSA bacteremia
L-2 epidural abscess
Multiple myeloma
HTN
Hx BPH
Hypothyroidism
HLD
Recommendations:
Continue cefazolin 2 g IV every 8 hours
Given recovery of MSSA, discontinue further vancomycin.
Check ESR and CRP
Further recommendations as additional data is returned.
Chief Complaint
-: Bacteremia (Staph positive blood cultures)
Subjective / Review of Systems
Review of Systems: No Fever
Vital Signs / Physical Exam
Vital Signs
Vital Signs
Temp Pulse Resp BP Pulse Ox
99.2 F 68 16 179/91 94
11/29/24 07:34 11/29/24 07:49 11/29/24 07:49 11/29/24 07:34 11/29/24 07:49
Physical Exam
Constitutional: No Acute Distress, Comfortable, Acutely Ill, Chronically Ill and Non-toxic
Head: Normocephalic
Eyes: No Conjunctival Hemorrhage and Sclera Anicteric
Gastrointestinal: Soft, Non Tender, Non Distended, Decreased Bowel Sounds, No Rebound, No Guarding and Other (PEG)
Extremities: Other (left forearm wound)
Skin: Warm and Dry (let forearm wound)
Wound: Other (left forearm wound)
Psychological: Calm
Lines: PIV
Objective Data
Lab Data
Lab Results
11/29/24 05:31
11/29/24 05:31
Estimated Creat Clear 86 ml/min 11/29/24 05:31
Lactic Acid 1.6 mmol/L (0.7-2.0) 11/25/24 19:06
Total Bilirubin 0.3 mg/dl (0.2-1.3) 11/28/24 08:54
AST 20 U/L (17-59) 11/28/24 08:54
ALT 25 U/L (0-50) 11/28/24 08:54
Alkaline Phosphatase 67 U/L (38-126) 11/28/24 08:54
Most recent labs reviewed.
Micro Results:
11/27/24 07:04 Blood Culture - Preliminary
Blood/Venous Positive culture in progress
Gram Stain - Preliminary
11/27/24 14:11 Blood Culture - Preliminary
Blood/Venous No Growth in 24 hours- Final report to follow
11/27/24 13:16 Blood Culture - Preliminary
Blood/Venous No Growth in 24 hours- Final report to follow
11/25/24 18:54 Wound Culture - Final
Arm - Left S aureus-Methicillin Sensitive
Gram Stain - Final
11/25/24 19:06 Blood Culture - Final
Blood/Venous S aureus-Methicillin Sensitive
Gram Stain - Final
11/25/24 19:17 Blood Culture - Final
Blood/Venous S aureus-Methicillin Sensitive
Gram Stain - Final
11/25/24 18:53 Urine Culture - Final
Urine
11/26/24 00:00 MRSA Screen - Final
Nose Staph aureus MRSA
--- NOTE | 2024-11-29 14:50 | PTCARENOTE ---
Family arrived and concerned pt is more confused than normal. Pt helped oob to chair - difficulty moving legs and was incontinent of urine. Pt also drowsy and falling asleep mid conversation. NIH done and scored 0. Hospitalist made aware of
situation and is ordering repeat head CT and placing hold on Ultram.
[2024-11-29 14:56] VITALS: BP 119/55
--- NOTE | 2024-11-29 17:55 | PTCARENOTE ---
Pt sitting up in bed eating dinner and chatting w/ family at bedside. Still confused/forgetful. Good strength in all extremities. Able to stand but difficulty ambulating.
[2024-11-29 18:16] VITALS: BP 123/59
[2024-11-29] MEDS: LOVENOX 40 MG SC (18:17)
[2024-11-29] MEDS: PROTONIX 20 MG PO (21:14)
[2024-11-29] MEDS: XALATAN OPHTHALMIC SOLUTION 1 DROP BOTH EYES (21:14)
[2024-11-29] MEDS: LIPITOR 20 MG PO (21:15)
[2024-11-29 23:00] VITALS: BP 152/74
[2024-11-30] MEDS: TYLENOL 650 MG PO ×2 (03:59→16:59)
[2024-11-30 06:00] VITALS: BMI 25.7
[2024-11-30] MEDS: ANCEF 10 IV ×3 (06:10→21:00)
[2024-11-30] MEDS: SYNTHROID 50 MCG PO (06:12)
[2024-11-30] MEDS: SPIRIVA RESPIMAT 2.5 MCG 2 PUFF INH (07:47)
[2024-11-30 08:05] VITALS: BP 164/106
[2024-11-30 08:08] LABS: Hematocrit 36.2 % (39.0-52.0); Hemoglobin 11.8 g/dL (13.0-18.0); Mean Corp Hgb Conc. 32.6 g/dL (33.0-37.0); Mean Corpuscular Volume 87.9 fL (80.0-94.0); Nucleated Red Blood Cells % 0 % (-); Platelet Count 277 10^3/uL (130-400); Red Cell Dist. Width 17.2 % (11.5-14.5)
[2024-11-30] MEDS: FLOMAX 0.8 MG PO (08:23)
[2024-11-30] MEDS: NEURONTIN 300 MG PO ×2 (08:23→19:04)
[2024-11-30] MEDS: ZOLOFT 100 MG PO ×2 (08:23→19:04)
[2024-11-30 09:01] LABS: C-Reactive Protein 84.80 mg/L (0.0-10.00)
[2024-11-30 09:11] LABS: Blood Urea Nitrogen 11 mg/dl (9-20); Calcium 7.6 mg/dl (8.4-10.2); Carbon Dioxide 23 mmol/L (22-30); Chloride 102 mmol/L (98-107); Estimated Creatinine Clearance 86 ml/min; Glucose 129 mg/dl (70-99); Potassium 3.8 mmol/L (3.5-5.1); Sodium 135 mmol/L (135-145); eGFR > 60.00
--- NOTE | 2024-11-30 10:32 | W.PN.HOSP.TC ---
Today's Communication/Plan
-
IV antibiotics. MRI thoracic area. X-ray of coccyx.
Assessment / Plan
Assessment / Plan
General: Acute on chronically ill and No Apparent Distress
HEENT: NormoCephalic, Moist mucous membranes and Atraumatic
Respiratory: Clear
Cardiac: S1/S2 and Regular Rhythm; No Murmur or Rub
GI: Soft, Non Tender, Non Distended and Normal Bowel Sounds; No Organomegaly
Rectal: Deferred by Provider
Musculoskeletal: No Clubbing, No Cyanosis and No Edema
Skin: left forearm rash covered in dressing
Neuro: AO x 3 and Nonfocal/grossly intact
Psych: Calm
A/P:
Sepsis likely 2/2 staph bacteremia (MSSA) from lumbar spine discitis/spinal epidural abscess and ?lue:
On IV cefazolin
Blood cultures sterile from 11/27 (last blood culture positive from 11/25)
MRSA colonized
Transthoracic Echo unremarkable
ID on board
Discussed with daughter Claudia over the phone today
Neurosurgery consult appreciated
Spinal epidural abscess/discitis osteomyelitis of L1-L2:
Continue IV antibiotic cefazolin and vancomycin
Neurosurgery consulted
Neurosurgery recommends to do an MRI of the thoracic area-ordered last evening
I will also check an x-ray of coccyx area
Toxic metabolic encephalopathy:
Likely related to tramadol which I discontinued yesterday and some degree of hypoactive delirium
Toradol as needed for pain and Tylenol
History of left arm abscess - No drainable collection. No erythema.
- On Bactrim EGG PRODUCER
- s/p wound culture
- +mrsa
-Wound consult
Hypokalemia
-Replete and trend
Primary HTN now with hypotension
-hold norvasc
-started midodrine
- Stop IV fluids and reevaluate
Right shoulder pain
- X-ray of the right shoulder reviewed
BPH With urinary retention
- continue tamulosin
-Bladder scan and straight cath protocol
Hypothyroid
- continue Synthroid 50 mcg
Mood disorder
-cont sertraline
History of multiple myeloma
-Not on any treatment at this point
Abnormal lung finding
moderate subpleural intralobular septal thickening/fibrotic change, without gary honeycombing. OP f/u recommended
DVT PPX -back on Lovenox
Code status - Full Code
Total time spent on today's encounter was 58 minutes which included time spent in counseling the patient/family regarding diagnosis and treatment plan as listed above, goals of care, and symptom management. Case was discussed with nursing staff,
specialists, and care coordinators/case management. All labs and imaging personally reviewed by me. Remainder the time spent in detailed review of previous records, lab data, imaging, and other medical provider documentation.
Anticipated Discharge: > 48 hours
Subjective/Interval History
-
Date of Service: November 30, 2024
Patient was confused yesterday but today he is alert and coherent. Does complain of more pain in the lower back, coccyx area. No bladder or bowel incontinence today. Afebrile
Objective Data
-
Labs:
Laboratory Results
11/30/24
07:19
WBC 10.2
Hgb 11.8 L
Hct 36.2 L
Plt Count 277
Sodium 135
Potassium 3.8
Chloride 102
Carbon Dioxide 23
BUN 11
Creatinine 0.6 L
Glucose 129 H
Calcium 7.6 L
Vital Signs:
Vital Signs
Temp Pulse Resp BP Pulse Ox
98 F 65 18 164/106 96
11/30/24 08:05 11/30/24 08:05 11/30/24 08:05 11/30/24 08:05 11/30/24 08:05
I&O
11/29/24 11/30/24 12/01/24
06:59 06:59 06:59
Intake Total 2064 720 / 720
Output Total 4049 / 4049 850 / 850
Balance -1984 / -1984 -130 / -130
--- NOTE | 2024-11-30 13:50 | W.PN.ID1 ---
Date of Service
Date of Service: November 30, 2024
Today's Communication
Continue antibiotics.
Assessment / Plan
MSSA bacteremia
L-2 epidural abscess
Elevated ESR / CRP
Multiple myeloma
HTN
Hx BPH
Hypothyroidism
HLD
Recommendations:
Continue cefazolin 2 g IV every 8 hours
Follow white count and temperature curve.
Follow blood cultures to assure clearance.
Patient will require a 6-week course of IV antibiotics.
Chief Complaint
-: Bacteremia (Staph positive blood cultures)
Subjective / Review of Systems
Patient seen and examined. Reports ongoing back pain
Review of Systems: No Fever and No Chills
Vital Signs / Physical Exam
Vital Signs
Vital Signs
Temp Pulse Resp BP Pulse Ox
98 F 65 18 164/106 96
11/30/24 08:05 11/30/24 08:05 11/30/24 08:05 11/30/24 08:05 11/30/24 08:05
Physical Exam
Constitutional: No Acute Distress, Comfortable, Acutely Ill, Chronically Ill and Non-toxic
Head: Normocephalic
Eyes: No Conjunctival Hemorrhage and Sclera Anicteric
Gastrointestinal: Soft, Non Tender, Non Distended, Decreased Bowel Sounds, No Rebound and No Guarding
Extremities: Other (left forearm wound)
Skin: Warm and Dry (let forearm wound)
Wound: Other (left forearm wound)
Psychological: Calm
Lines: PIV
Objective Data
Lab Data
Lab Results
11/30/24 07:19
11/30/24 07:19
ESR 99 mm/hour (0-20) H 11/30/24 07:19
Estimated Creat Clear 86 ml/min 11/30/24 07:19
Lactic Acid 1.6 mmol/L (0.7-2.0) 11/25/24 19:06
Total Bilirubin 0.3 mg/dl (0.2-1.3) 11/28/24 08:54
AST 20 U/L (17-59) 11/28/24 08:54
ALT 25 U/L (0-50) 11/28/24 08:54
Alkaline Phosphatase 67 U/L (38-126) 11/28/24 08:54
C-Reactive Protein 84.80 mg/L (0.0-10.00) H 11/30/24 07:19
Most recent labs reviewed.
Micro Results:
11/27/24 13:16 Blood Culture - Preliminary
Blood/Venous No Growth in 72 hours- Final report to follow
11/27/24 07:04 Blood Culture - Preliminary
Blood/Venous S aureus-Methicillin Sensitive
Gram Stain - Preliminary
11/27/24 14:11 Blood Culture - Preliminary
Blood/Venous No Growth in 48 hours- Final report to follow
11/25/24 18:54 Wound Culture - Final
Arm - Left S aureus-Methicillin Sensitive
Gram Stain - Final
11/25/24 19:06 Blood Culture - Final
Blood/Venous S aureus-Methicillin Sensitive
Gram Stain - Final
11/25/24 19:17 Blood Culture - Final
Blood/Venous S aureus-Methicillin Sensitive
Gram Stain - Final
11/25/24 18:53 Urine Culture - Final
Urine
11/26/24 00:00 MRSA Screen - Final
Nose Staph aureus MRSA
Imaging:
11/28/2024 MRI lumbar spine: Left paracentral epidural abscess posterior to the L2 vertebral body. Suspicion for mild/early discitis/osteomyelitis at L1-2. No paraspinal fluid collection to indicate paraspinal abscess. Please see full dictation
for additional detail.
[2024-11-30 15:39] VITALS: BP 144/84
[2024-11-30] MEDS: LOVENOX 40 MG SC (16:57)
[2024-11-30] MEDS: LIPITOR 20 MG PO (21:00)
[2024-11-30] MEDS: PROTONIX 20 MG PO (22:10)
[2024-11-30] MEDS: XALATAN OPHTHALMIC SOLUTION 1 DROP BOTH EYES (22:10)
[2024-11-30 23:07] VITALS: BP 135/68
[2024-12-01] MEDS: ANCEF 10 IV ×3 (05:01→22:16)
[2024-12-01] MEDS: SYNTHROID 50 MCG PO (05:01)
[2024-12-01] MEDS: TYLENOL 650 MG PO (05:03)
[2024-12-01 06:00] VITALS: BMI 24.2
[2024-12-01] MEDS: SPIRIVA RESPIMAT 2.5 MCG 2 PUFF INH (07:16)
[2024-12-01 07:58] LABS: Hematocrit 37.4 % (39.0-52.0); Hemoglobin 12.2 g/dL (13.0-18.0); Mean Corp Hgb Conc. 32.6 g/dL (33.0-37.0); Mean Corpuscular Volume 87.8 fL (80.0-94.0); Nucleated Red Blood Cells % 0 % (-); Platelet Count 328 10^3/uL (130-400); Red Cell Dist. Width 17.2 % (11.5-14.5)
[2024-12-01 08:22] VITALS: BP 175/94
[2024-12-01] MEDS: ZOLOFT 100 MG PO ×2 (08:33→22:14)
[2024-12-01] MEDS: NEURONTIN 300 MG PO (08:33)
[2024-12-01] MEDS: FLOMAX 0.8 MG PO (08:33)
--- NOTE | 2024-12-01 08:49 | W.PN.HOSP.TC ---
Today's Communication/Plan
-
IV antibiotics. Pain control
Assessment / Plan
Assessment / Plan
General: Acute on chronically ill and No Apparent Distress
HEENT: NormoCephalic, Moist mucous membranes and Atraumatic
Respiratory: Clear
Cardiac: S1/S2 and Regular Rhythm; No Murmur or Rub
GI: Soft, Non Tender, Non Distended and Normal Bowel Sounds; No Organomegaly
Rectal: Deferred by Provider
Musculoskeletal: No Clubbing, No Cyanosis and No Edema
Skin: left forearm rash covered in dressing
Neuro: AO x 3 and Nonfocal/grossly intact, generalized weakness
Psych: Calm
A/P:
Sepsis likely 2/2 staph bacteremia (MSSA) from lumbar spine discitis/spinal epidural abscess and ?lue:
On IV cefazolin
Blood cultures sterile from 11/27 (last blood culture positive from 11/25)
MRSA colonized
Transthoracic Echo unremarkable
ID on board
Discussed with daughter Claudia over the phone today
Neurosurgery consult appreciated
Spinal epidural abscess/discitis osteomyelitis of L1-L2:
Continue IV antibiotic cefazolin
Neurosurgery consult appreciated
Neurosurgery recommends to do an MRI of the thoracic area-discussed with neurosurgery today and no concerning findings from neurostandpoint
Reviewed x-ray of coccyx area
Continue Tylenol that scheduled, continue Tylenol as needed, add Lidoderm patch.
Hold diclofenac, tramadol, and gabapentin.
Toxic metabolic encephalopathy:
Likely related to tramadol and gabapentin and some degree of hypoactive delirium
Hold tramadol, and gabapentin
Monitor mental status
Abnormal UA:
Will repeat urine culture per family request
History of left arm abscess - No drainable collection. No erythema.
- On Bactrim RN TRANSPORT
- s/p wound culture
- +mrsa
-Wound consult
Hypokalemia
-Replete and trend
Primary HTN (hypotension resolved)
- Resume norvasc
- Stop midodrine
- Off IV fluid
Right shoulder pain
- X-ray of the right shoulder reviewed
BPH With urinary retention
- continue tamulosin
-Bladder scan and straight cath protocol
Hypothyroid
- continue Synthroid 50 mcg
Mood disorder
-cont sertraline
History of multiple myeloma
-Not on any treatment at this point
Abnormal lung finding
moderate subpleural intralobular septal thickening/fibrotic change, without gary honeycombing. OP f/u recommended
DVT PPX -continue on Lovenox
Code status - Full Code
Time spent 35-minutes
Anticipated Discharge: 24 - 48 hours
Subjective/Interval History
-
Date of Service: December 01, 2024
Patient alert and coherent today but he does report confusion on and off. He still has back pain. Afebrile
Objective Data
-
Labs:
Laboratory Results
12/01/24
07:27
WBC 10.1
Hgb 12.2 L
Hct 37.4 L
Plt Count 328
Sodium Pending
Potassium Pending
Chloride Pending
Carbon Dioxide Pending
BUN Pending
Creatinine Pending
Glucose Pending
Calcium Pending
Vital Signs:
Vital Signs
Temp Pulse Resp BP Pulse Ox
98.2 F 70 18 175/94 97
12/01/24 08:22 12/01/24 08:22 12/01/24 08:22 12/01/24 08:22 12/01/24 08:22
I&O
11/30/24 12/01/24 12/02/24
06:59 06:59 06:59
Intake Total 720 / 720 720 / 720
Output Total 850 / 850 1050 / 1050
Balance -130 / -130 -330 / -330
[2024-12-01 09:07] LABS: Blood Urea Nitrogen 14 mg/dl (9-20); Calcium 7.9 mg/dl (8.4-10.2); Carbon Dioxide 26 mmol/L (22-30); Chloride 102 mmol/L (98-107); Estimated Creatinine Clearance 86 ml/min; Glucose 119 mg/dl (70-99); Potassium 4.2 mmol/L (3.5-5.1); Sodium 137 mmol/L (135-145); eGFR > 60.00
--- NOTE | 2024-12-01 13:58 | W.PN.ID1 ---
Date of Service
Date of Service: December 01, 2024
Today's Communication
Continue antibiotics.
Assessment / Plan
MSSA bacteremia
L-2 epidural abscess
Elevated ESR / CRP
Multiple myeloma
HTN
Hx BPH
Hypothyroidism
HLD
Recommendations:
Continue cefazolin 2 g IV every 8 hours
Follow white count and temperature curve.
Follow blood cultures to assure clearance.
Patient will require a 6-week course of IV antibiotics from first negative blood cultures
Repeat set of blood cultures today.
Chief Complaint
-: Bacteremia (MSSA)
Subjective / Review of Systems
Patient seen and examined. Reports some ongoing back pain.
Review of Systems: No Fever and No Chills
Vital Signs / Physical Exam
Vital Signs
Vital Signs
Temp Pulse Resp BP Pulse Ox
98.2 F 70 18 175/94 97
12/01/24 08:22 12/01/24 08:22 12/01/24 08:22 12/01/24 08:22 12/01/24 08:22
Physical Exam
Constitutional: No Acute Distress, Comfortable, Chronically Ill and Non-toxic
Head: Normocephalic
Eyes: No Conjunctival Hemorrhage and Sclera Anicteric
Cardiovascular: S1/S2; Negative S3/S4
Gastrointestinal: Soft, Non Tender, Non Distended, Decreased Bowel Sounds, No Rebound and No Guarding
Extremities: Other (left forearm wound)
Skin: Warm and Dry (let forearm wound)
Wound: Other (left forearm wound)
Psychological: Calm
Lines: PIV
Objective Data
Lab Data
Lab Results
12/01/24 07:27
12/01/24 07:27
ESR 99 mm/hour (0-20) H 11/30/24 07:19
Estimated Creat Clear 86 ml/min 12/01/24 07:27
Lactic Acid 1.6 mmol/L (0.7-2.0) 11/25/24 19:06
Total Bilirubin 0.3 mg/dl (0.2-1.3) 11/28/24 08:54
AST 20 U/L (17-59) 11/28/24 08:54
ALT 25 U/L (0-50) 11/28/24 08:54
Alkaline Phosphatase 67 U/L (38-126) 11/28/24 08:54
C-Reactive Protein 84.80 mg/L (0.0-10.00) H 11/30/24 07:19
Most recent labs reviewed.
Micro Results:
11/27/24 13:16 Blood Culture - Preliminary
Blood/Venous No Growth in 4 days- Final report to follow
11/27/24 14:11 Blood Culture - Preliminary
Blood/Venous No Growth in 72 hours- Final report to follow
11/27/24 07:04 Blood Culture - Preliminary
Blood/Venous S aureus-Methicillin Sensitive
Gram Stain - Preliminary
11/25/24 18:54 Wound Culture - Final
Arm - Left S aureus-Methicillin Sensitive
Gram Stain - Final
11/25/24 19:06 Blood Culture - Final
Blood/Venous S aureus-Methicillin Sensitive
Gram Stain - Final
11/25/24 19:17 Blood Culture - Final
Blood/Venous S aureus-Methicillin Sensitive
Gram Stain - Final
11/25/24 18:53 Urine Culture - Final
Urine
11/26/24 00:00 MRSA Screen - Final
Nose Staph aureus MRSA
Imaging:
11/28/2024 MRI lumbar spine: Left paracentral epidural abscess posterior to the L2 vertebral body. Suspicion for mild/early discitis/osteomyelitis at L1-2. No paraspinal fluid collection to indicate paraspinal abscess. Please see full dictation
for additional detail.
--- NOTE | 2024-12-01 14:20 | CM ---
Addendum entered by Kim Quinn 12/01/24 16:29:
[email or web address] lists for SNF and acute rehab delivered to patient's room.
Addendum entered by Kim Quinn 12/01/24 15:49:
Therapy now recommending Rehab. Awaiting progress note.
Original Note:
IV/Ancef. Discharge POC: Therapy recommendation for HH PT/OT. has accepted for RN, PT/OT.
[2024-12-01] MEDS: LOVENOX 40 MG SC (15:25)
[2024-12-01] MEDS: TYLENOL 1000 MG PO ×2 (15:25→22:14)
[2024-12-01] MEDS: LIDOCAINE 4% PATCH 1 PATCH TOPICAL (15:25)
[2024-12-01 15:46] VITALS: BP 129/82; PULSE 76; O2SAT 97
[2024-12-01 16:09] VITALS: BP 154/76
--- NOTE | 2024-12-01 17:02 | W.PN.UPDATE ---
Update Note
Progress Note Update
MRI thoracic spine with and without contrast reviewed.
No obvious evidence of cord compression noted or cord signal change noted.
Acute compression deformity noted at T7.
If patient has significant thoracic back pain, can use TLSO brace when weightbearing.
Continue with current antibiotic therapy and monitor for neurological changes.
Follow ESR/CRP after antibiotic course to ensure satisfactory response.
[2024-12-01] MEDS: PROTONIX 20 MG PO (22:14)
[2024-12-01] MEDS: REMOVE LIDOCAINE PATCH 1 PATCH REMOVE (22:16)
[2024-12-01] MEDS: LIPITOR 20 MG PO (22:16)
[2024-12-01] MEDS: XALATAN OPHTHALMIC SOLUTION 1 DROP BOTH EYES (22:16)
[2024-12-01] MEDS: MELATONIN 5 MG PO (22:44)
[2024-12-01 23:07] VITALS: BP 189/91
[2024-12-02 01:40] VITALS: BP 150/77
[2024-12-02] MEDS: SYNTHROID 50 MCG PO (05:31)
[2024-12-02] MEDS: ANCEF 10 IV ×3 (05:31→22:20)
[2024-12-02] MEDS: TYLENOL 1000 MG PO ×3 (05:31→22:19)
[2024-12-02 06:00] VITALS: BMI 24.0
[2024-12-02 07:00] VITALS: BP 142/62
[2024-12-02] MEDS: SPIRIVA RESPIMAT 2.5 MCG 2 PUFF INH (07:31)
[2024-12-02] MEDS: LIDOCAINE 4% PATCH 1 PATCH TOPICAL (07:45)
[2024-12-02] MEDS: FLOMAX 0.8 MG PO (07:46)
[2024-12-02] MEDS: NORVASC 5 MG PO (07:46)
[2024-12-02] MEDS: ZOLOFT 100 MG PO ×2 (07:46→20:40)
[2024-12-02 09:14] LABS: Hematocrit 37.3 % (39.0-52.0); Hemoglobin 12.2 g/dL (13.0-18.0); Mean Corp Hgb Conc. 32.7 g/dL (33.0-37.0); Mean Corpuscular Volume 88.0 fL (80.0-94.0); Platelet Count 412 10^3/uL (130-400); Red Cell Dist. Width 17.2 % (11.5-14.5)
[2024-12-02 09:57] LABS: Blood Urea Nitrogen 14 mg/dl (9-20); Calcium 8.4 mg/dl (8.4-10.2); Carbon Dioxide 26 mmol/L (22-30); Chloride 103 mmol/L (98-107); Estimated Creatinine Clearance 74 ml/min; Glucose 133 mg/dl (70-99); Potassium 4.5 mmol/L (3.5-5.1); Sodium 138 mmol/L (135-145); eGFR > 60.00
--- NOTE | 2024-12-02 10:23 | W.PN.HOSP.TC ---
Today's Communication/Plan
-
IV antibiotic
Assessment / Plan
Assessment / Plan
General: Acute on chronically ill and No Apparent Distress
HEENT: NormoCephalic, Moist mucous membranes and Atraumatic
Respiratory: Clear
Cardiac: S1/S2 and Regular Rhythm; No Murmur or Rub
GI: Soft, Non Tender, Non Distended and Normal Bowel Sounds; No Organomegaly
Rectal: Deferred by Provider
Musculoskeletal: No Clubbing, No Cyanosis and No Edema
Skin: left forearm rash covered in dressing
Neuro: AO x 3 and Nonfocal/grossly intact, generalized weakness
Psych: Calm
A/P:
Sepsis likely 2/2 staph bacteremia (MSSA) from lumbar spine discitis/spinal epidural abscess and ?lue:
On IV cefazolin
Blood cultures still positive from 11/25 and 11/27
Repeated blood cultures yesterday 12/01 pending
MRSA colonized
Transthoracic Echo unremarkable
ID on board--> follow-up further ID recommendations
Discussed with daughter Claudia over the phone yesterday
Neurosurgery consult appreciated
Spinal epidural abscess/discitis osteomyelitis of L1-L2:
Continue IV antibiotic cefazolin
Neurosurgery consult appreciated
Continue Tylenol that scheduled, Lidoderm patch, IV Toradol as needed.
Hold diclofenac, tramadol, and gabapentin.
Toxic metabolic encephalopathy:
Likely related to tramadol and gabapentin and some degree of hypoactive delirium
Hold tramadol, and gabapentin
Monitor mental status
Abnormal UA:
Will repeat urine culture per family request--> pending results
History of left arm abscess - No drainable collection. No erythema.
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
- s/p wound culture
- +mrsa
-Wound consult
Hypokalemia
-Replete and trend
Primary HTN (hypotension resolved)
- Resume norvasc
- Stop midodrine
- Off IV fluid
Right shoulder pain
- X-ray of the right shoulder reviewed
BPH With urinary retention
- continue tamulosin
-Bladder scan and straight cath protocol
Hypothyroid
- continue Synthroid 50 mcg
Mood disorder
-cont sertraline
History of multiple myeloma
-Not on any treatment at this point
Abnormal lung finding
moderate subpleural intralobular septal thickening/fibrotic change, without gary honeycombing. OP f/u recommended
DVT PPX -continue on Lovenox
Code status - Full Code
Total time spent on today's encounter was 52 minutes which included time spent in counseling the patient/family regarding diagnosis and treatment plan as listed above, goals of care, and symptom management. Case was discussed with nursing staff,
specialists, and care coordinators/case management. All labs and imaging personally reviewed by me. Remainder the time spent in detailed review of previous records, lab data, imaging, and other medical provider documentation.
Anticipated Discharge: 24 - 48 hours
Subjective/Interval History
-
Date of Service: December 02, 2024
Patient still having some back pain. Afebrile
Objective Data
-
Labs:
Laboratory Results
12/02/24
08:27
WBC 10.8
Hgb 12.2 L
Hct 37.3 L
Plt Count 412 H D
Sodium 138
Potassium 4.5
Chloride 103
Carbon Dioxide 26
BUN 14
Creatinine 0.7
Glucose 133 H
Calcium 8.4
Vital Signs:
Vital Signs
Temp Pulse Resp BP Pulse Ox
97.7 F 72 14 142/62 96
12/02/24 07:00 12/02/24 07:32 12/02/24 07:32 12/02/24 07:00 12/02/24 07:32
I&O
07/06/2712/02/24 12/03/24
06:59 06:59 06:59
Intake Total 720 / 720 480 / 480 480 / 480
Output Total 1050 / 1050 1250 / 1250
Balance -330 / -330 -770 / -770 480 / 480
--- NOTE | 2024-12-02 10:52 | W.PN.ID1 ---
Date of Service
Date of Service: December 02, 2024
Today's Communication
Continue antibiotics
Assessment / Plan
MSSA bacteremia (sustained)
L2 epidural abscess
Suspected discitis/osteomyelitis L1-2
Elevated ESR / CRP
Multiple myeloma
HTN
Hx BPH
Hypothyroidism
HLD
Recommendations:
Continue cefazolin 2 g IV every 8 hours
Follow white count and temperature curve.
Follow blood cultures to assure clearance. Repeat blood cultures obtained yesterday; will follow.
Patient will require a 6-week course of IV antibiotics from first negative blood cultures
����������������������������������������������������������
Chief Complaint
-: Bacteremia (MSSA)
Subjective / Review of Systems
Patient seen and examined. Reports ongoing low back pain.
Review of Systems: No Fever and No Chills
Vital Signs / Physical Exam
Vital Signs
Vital Signs
Temp Pulse Resp BP Pulse Ox
97.7 F 72 14 142/62 96
12/02/24 07:00 12/02/24 07:32 12/02/24 07:32 12/02/24 07:00 12/02/24 07:32
Physical Exam
Constitutional: No Acute Distress, Comfortable, Chronically Ill and Non-toxic
Head: Normocephalic
Eyes: No Conjunctival Hemorrhage and Sclera Anicteric
Cardiovascular: S1/S2; Negative S3/S4
Gastrointestinal: Soft, Non Tender, Non Distended, Decreased Bowel Sounds, No Rebound and No Guarding
Extremities: Other (left forearm wound dressed.)
Skin: Warm
Psychological: Calm
Lines: PIV
Objective Data
Lab Data
Lab Results
12/02/24 08:27
12/02/24 08:27
ESR 99 mm/hour (0-20) H 11/30/24 07:19
Estimated Creat Clear 74 ml/min 12/02/24 08:27
Lactic Acid 1.6 mmol/L (0.7-2.0) 11/25/24 19:06
Total Bilirubin 0.3 mg/dl (0.2-1.3) 11/28/24 08:54
AST 20 U/L (17-59) 11/28/24 08:54
ALT 25 U/L (0-50) 11/28/24 08:54
Alkaline Phosphatase 67 U/L (38-126) 11/28/24 08:54
C-Reactive Protein 84.80 mg/L (0.0-10.00) H 11/30/24 07:19
Most recent labs reviewed.
Micro Results:
12/02/24 07:56 Urine Culture - Pending
Urine
11/27/24 13:16 Blood Culture - Preliminary
Blood/Venous Positive culture in progress
Gram Stain - Preliminary
12/01/24 14:48 Blood Culture - Pending
Blood/Venous
12/01/24 14:19 Blood Culture - Pending
Blood/Venous
11/27/24 14:11 Blood Culture - Preliminary
Blood/Venous No Growth in 4 days- Final report to follow
11/27/24 07:04 Blood Culture - Preliminary
Blood/Venous S aureus-Methicillin Sensitive
Gram Stain - Preliminary
11/25/24 18:54 Wound Culture - Final
Arm - Left S aureus-Methicillin Sensitive
Gram Stain - Final
11/25/24 19:06 Blood Culture - Final
Blood/Venous S aureus-Methicillin Sensitive
Gram Stain - Final
11/25/24 19:17 Blood Culture - Final
Blood/Venous S aureus-Methicillin Sensitive
Gram Stain - Final
11/25/24 18:53 Urine Culture - Final
Urine
11/26/24 00:00 MRSA Screen - Final
Nose Staph aureus MRSA
Imaging:
11/28/2024 MRI lumbar spine: Left paracentral epidural abscess posterior to the L2 vertebral body. Suspicion for mild/early discitis/osteomyelitis at L1-2. No paraspinal fluid collection to indicate paraspinal abscess. Please see full dictation
for additional detail.
[2024-12-02] MEDS: TORADOL IV (13:44)
[2024-12-02 15:00] VITALS: BP 104/68
[2024-12-02] MEDS: LOVENOX 40 MG SC (15:04)
[2024-12-02] MEDS: TORADOL 15 MG IV ×2 (15:04→20:40)
--- NOTE | 2024-12-02 16:44 | CM ---
Met with patient, his daughter and at the request of patient's RN. Patient and family stated that they would like for patient to go to [facility] as they live in [place] and it is close. Called Joanne in admissions at
[place] who stated to send referral over however she believes that they do have a male bed. Will send referral through [employer] in am.
Plan: Case management will continue to follow and assist with discharge planning. Family hopeful for [facility] upon discharge.
[2024-12-02] MEDS: REMOVE LIDOCAINE PATCH 1 PATCH REMOVE (20:41)
[2024-12-02] MEDS: PROTONIX 40 MG PO (22:19)
[2024-12-02] MEDS: LIPITOR 20 MG PO (22:19)
[2024-12-02] MEDS: XALATAN OPHTHALMIC SOLUTION 1 DROP BOTH EYES (22:20)
[2024-12-02 23:10] VITALS: BP 175/80
[2024-12-02] MEDS: NEURONTIN PO (23:12)
[2024-12-02] MEDS: MELATONIN 5 MG PO (23:14)
[2024-12-03] MEDS: TORADOL 15 MG IV ×4 (02:10→19:39)
[2024-12-03 02:11] VITALS: BP 169/82
[2024-12-03] MEDS: TYLENOL 1000 MG PO ×3 (06:04→21:08)
[2024-12-03] MEDS: ANCEF 10 IV ×3 (06:04→21:10)
[2024-12-03] MEDS: SYNTHROID 50 MCG PO (06:04)
[2024-12-03 07:15] VITALS: BP 147/75
[2024-12-03 07:28] VITALS: BMI 23.6
[2024-12-03] MEDS: SPIRIVA RESPIMAT 2.5 MCG 2 PUFF INH (07:45)
[2024-12-03 08:30] LABS: Hematocrit 37.9 % (39.0-52.0); Hemoglobin 12.0 g/dL (13.0-18.0); Mean Corp Hgb Conc. 31.7 g/dL (33.0-37.0); Mean Corpuscular Volume 89.6 fL (80.0-94.0); Nucleated Red Blood Cells % 0 % (-); Platelet Count 448 10^3/uL (130-400); Red Cell Dist. Width 17.3 % (11.5-14.5)
[2024-12-03] MEDS: NORVASC 5 MG PO (08:50)
[2024-12-03] MEDS: FLOMAX 0.8 MG PO (08:50)
[2024-12-03] MEDS: LIDOCAINE 4% PATCH TOPICAL ×2 (08:50→08:51)
[2024-12-03] MEDS: ZOLOFT 100 MG PO ×2 (08:50→19:41)
[2024-12-03 09:10] LABS: Blood Urea Nitrogen 15 mg/dl (9-20); Calcium 8.3 mg/dl (8.4-10.2); Carbon Dioxide 28 mmol/L (22-30); Chloride 103 mmol/L (98-107); Estimated Creatinine Clearance 74 ml/min; Glucose 115 mg/dl (70-99); Potassium 4.6 mmol/L (3.5-5.1); Sodium 137 mmol/L (135-145); eGFR > 60.00
[2024-12-03 10:45] LABS: C-Reactive Protein 44.10 mg/L (0.0-10.00)
--- NOTE | 2024-12-03 11:51 | W.PN.HOSP.TC ---
Today's Communication/Plan
-
IV antibiotics.
Assessment / Plan
Assessment / Plan
General: Acute on chronically ill and No Apparent Distress
HEENT: NormoCephalic, Moist mucous membranes and Atraumatic
Respiratory: Clear
Cardiac: S1/S2 and Regular Rhythm; No Murmur or Rub
GI: Soft, Non Tender, Non Distended and Normal Bowel Sounds; No Organomegaly
Rectal: Deferred by Provider
Musculoskeletal: No Clubbing, No Cyanosis and No Edema
Skin: left forearm rash covered in dressing
Neuro: AO x 3 and Nonfocal/grossly intact, generalized weakness
Psych: Calm
A/P:
Sepsis likely 2/2 staph bacteremia (MSSA) from lumbar spine discitis/spinal epidural abscess and ?lue:
On IV cefazolin
Repeated blood cultures from 12/01 no growth but pending
Blood cultures still positive from 11/25 and 11/27
MRSA colonized
Transthoracic Echo unremarkable
ID on board--> follow-up further ID recommendations
Discussed with daughter Claudia over the phone today
Neurosurgery consult appreciated
ESR 99--> 90
CRP 84.8--> 44.1
Discharge planning once cleared by ID
Spinal epidural abscess/discitis osteomyelitis of L1-L2:
Continue IV antibiotic cefazolin
Neurosurgery consult appreciated
Continue Tylenol, Lidoderm patch, IV Toradol scheduled.
Hold diclofenac, tramadol.
Will restart gabapentin at a lower dose to see if he tolerates
Toxic metabolic encephalopathy:
Likely related to tramadol and gabapentin and some degree of hypoactive delirium. Ok to restart gabapentin at lower dose
Hold tramadol.
Monitor mental status
Abnormal UA:
Repeated urine culture per family request--> repeated urine culture and no growth.
History of left arm abscess - No drainable collection. No erythema.
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
- s/p wound culture
- +mrsa
-Wound consult
Hypokalemia
-Replete and trend
Primary HTN (hypotension resolved)
- Resume norvasc
- Stop midodrine
- Off IV fluid
Right shoulder pain
- X-ray of the right shoulder reviewed
BPH With urinary retention
- continue tamulosin
-Bladder scan and straight cath protocol
Hypothyroid
- continue Synthroid 50 mcg
Mood disorder
-cont sertraline
History of multiple myeloma
-Not on any treatment at this point
Abnormal lung finding
moderate subpleural intralobular septal thickening/fibrotic change, without gary honeycombing. OP f/u recommended
DVT PPX -continue on Lovenox
Code status - Full Code
Time spent 35 minutes
Anticipated Discharge: 24 - 48 hours
Subjective/Interval History
-
Date of Service: December 03, 2024
Patient tells me back pain is better today. Afebrile
Objective Data
-
Labs:
Laboratory Results
12/03/24
07:53
WBC 8.3
Hgb 12.0 L
Hct 37.9 L
Plt Count 448 H
Sodium 137
Potassium 4.6
Chloride 103
Carbon Dioxide 28
BUN 15
Creatinine 0.7
Glucose 115 H
Calcium 8.3 L
Vital Signs:
Vital Signs
Temp Pulse Resp BP Pulse Ox
98.0 F 74 18 147/75 97
12/03/24 07:15 12/03/24 07:47 12/03/24 07:47 12/03/24 07:15 12/03/24 08:00
I&O
12/02/24 12/03/24 12/04/24
06:59 06:59 06:59
Intake Total 480 / 480 2160 / 2160
Output Total 1250 / 1250 1500 / 1500
Balance -770 / -770 660 / 660
--- NOTE | 2024-12-03 14:09 | CM ---
[facility] has offered a bed for Arjun when he is medically cleared for discharge. He is Medicare primary, so no authorization is needed.
[2024-12-03 14:11] VITALS: BP 117/68
--- NOTE | 2024-12-03 14:46 | WOUNDNOTE ---
[facility] RN NOTE: Patient visited to follow up on left arm infected wound. BRIANNA Guido recently completed wound care and dressing was dry and intact. Pictures from 11/27 reviewed with Hay. Per Hay wound appears stock drier tender with some scabbed areas and minimal
drainage. Patient denies pain or discomfort of left arm. Patient continues with antibiotics for MRSA + arm wound and spinal abscess. Will follow as needed.
[2024-12-03 15:39] VITALS: BP 109/65
[2024-12-03] MEDS: LOVENOX 40 MG SC (17:47)
[2024-12-03] MEDS: REMOVE LIDOCAINE PATCH REMOVE (19:39)
[2024-12-03] MEDS: LIPITOR 20 MG PO (21:07)
[2024-12-03] MEDS: PROTONIX 40 MG PO (21:08)
[2024-12-03] MEDS: XALATAN OPHTHALMIC SOLUTION 1 DROP BOTH EYES (21:08)
[2024-12-03] MEDS: NEURONTIN 100 MG PO (21:08)
[2024-12-03] MEDS: MELATONIN 5 MG PO (21:10)
[2024-12-03 23:16] VITALS: BP 159/71
[2024-12-04] MEDS: TORADOL 15 MG IV ×4 (01:45→19:22)
[2024-12-04] MEDS: TYLENOL 1000 MG PO ×3 (05:25→21:07)
[2024-12-04] MEDS: ANCEF 10 IV ×3 (05:25→21:09)
[2024-12-04] MEDS: SYNTHROID 50 MCG PO (05:25)
[2024-12-04 06:00] VITALS: BMI 23.6
[2024-12-04 06:54] LABS: Hematocrit 34.3 % (39.0-52.0); Hemoglobin 11.2 g/dL (13.0-18.0); Mean Corp Hgb Conc. 32.7 g/dL (33.0-37.0); Mean Corpuscular Volume 88.6 fL (80.0-94.0); Platelet Count 451 10^3/uL (130-400); Red Cell Dist. Width 17.2 % (11.5-14.5)
[2024-12-04 07:19] LABS: Blood Urea Nitrogen 16 mg/dl (9-20); Calcium 8.3 mg/dl (8.4-10.2); Carbon Dioxide 26 mmol/L (22-30); Chloride 105 mmol/L (98-107); Estimated Creatinine Clearance 74 ml/min; Glucose 99 mg/dl (70-99); Potassium 5.0 mmol/L (3.5-5.1); Sodium 137 mmol/L (135-145); eGFR > 60.00
[2024-12-04] MEDS: SPIRIVA RESPIMAT 2.5 MCG 2 PUFF INH (07:34)
[2024-12-04 07:55] VITALS: BP 175/86
[2024-12-04] MEDS: FLOMAX 0.8 MG PO (08:09)
[2024-12-04] MEDS: NORVASC 5 MG PO (08:12)
[2024-12-04] MEDS: ZOLOFT 100 MG PO ×2 (08:12→19:24)
[2024-12-04] MEDS: LIDOCAINE 4% PATCH TOPICAL (08:12)
--- NOTE | 2024-12-04 10:30 | CM ---
Addendum entered by Joan Jean Baptiste 12/04/24 16:00:
Script obtained (original on chart) for IV abx.
Script added to referral to [facility] so they are able to prepare the meds for pt.
Original Note:
CM following re: d/c planning.
D/c plan is for SNF at [facility].
Confirmed bed available today.
Discussed with attending; awaiting ID clearance and PICC placement prior to transfer.
Goal: BV at d/c.
--- NOTE | 2024-12-04 11:36 | W.PN.HOSP.TC ---
Today's Communication/Plan
-
IV antibiotics. Discharge planning
Assessment / Plan
Assessment / Plan
General: Acute on chronically ill and No Apparent Distress
HEENT: NormoCephalic, Moist mucous membranes and Atraumatic
Respiratory: Clear
Cardiac: S1/S2 and Regular Rhythm; No Murmur or Rub
GI: Soft, Non Tender, Non Distended and Normal Bowel Sounds; No Organomegaly
Rectal: Deferred by Provider
Musculoskeletal: No Clubbing, No Cyanosis and No Edema
Skin: left forearm rash covered in dressing
Neuro: AO x 3 and Nonfocal/grossly intact, generalized weakness
Psych: Calm
A/P:
Sepsis likely 2/2 staph bacteremia (MSSA) from lumbar spine discitis/spinal epidural abscess and ?lue:
On IV cefazolin
Repeated blood cultures from 12/01 no growth but pending
Blood cultures still positive from 11/25 and 11/27
MRSA colonized
Transthoracic Echo unremarkable
ID on board--> follow-up further ID recommendations
Discussed with daughter Claudia over the phone yesterday
Neurosurgery consult appreciated
ESR 99--> 90
CRP 84.8--> 44.1
Discharge planning once cleared by ID
Spinal epidural abscess/discitis osteomyelitis of L1-L2:
Continue IV antibiotic cefazolin
Neurosurgery consult appreciated
Continue Tylenol, Lidoderm patch, IV Toradol scheduled.
Hold diclofenac, tramadol.
Will restart gabapentin at a lower dose to see if he tolerates
Toxic metabolic encephalopathy:
Likely related to tramadol and gabapentin and some degree of hypoactive delirium. Ok to restart gabapentin at lower dose
Hold tramadol.
Monitor mental status
Abnormal UA:
Repeated urine culture per family request--> repeated urine culture and no growth.
History of left arm abscess - No drainable collection. No erythema.
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
- s/p wound culture
- +mrsa
-Wound consult
Hypokalemia
-Replete and trend
Primary HTN (hypotension resolved)
- Resume norvasc
- Stop midodrine
- Off IV fluid
Right shoulder pain
- X-ray of the right shoulder reviewed
BPH With urinary retention
- continue tamulosin
-Bladder scan and straight cath protocol
Hypothyroid
- continue Synthroid 50 mcg
Mood disorder
-cont sertraline
History of multiple myeloma
-Not on any treatment at this point
Abnormal lung finding
moderate subpleural intralobular septal thickening/fibrotic change, without gary honeycombing. OP f/u recommended
DVT PPX -continue on Lovenox
Code status - Full Code
Time spent 35 minutes
Anticipated Discharge: 24 - 48 hours
Subjective/Interval History
-
Date of Service: December 04, 2024
Patient back pain better overall. Afebrile
Objective Data
-
Labs:
Laboratory Results
12/04/24
06:08
WBC 8.3
Hgb 11.2 L
Hct 34.3 L
Plt Count 451 H
Sodium 137
Potassium 5.0
Chloride 105
Carbon Dioxide 26
BUN 16
Creatinine 0.7
Glucose 99
Calcium 8.3 L
Vital Signs:
Vital Signs
Temp Pulse Resp BP Pulse Ox
98.3 F 73 16 175/86 96
12/04/24 07:55 12/04/24 07:55 12/04/24 07:55 12/04/24 07:55 12/04/24 07:55
I&O
12/03/24 12/04/24 12/05/24
06:59 06:59 06:59
Intake Total 2160 / 2160 780 / 780
Output Total 1500 / 1500 1470 / 1470 400 / 400
Balance 660 / 660 -690 / -690 -400 / -400
[2024-12-04 15:00] VITALS: BP 119/68
[2024-12-04] MEDS: LOVENOX 40 MG SC (16:39)
[2024-12-04] MEDS: REMOVE LIDOCAINE PATCH REMOVE (19:22)
[2024-12-04] MEDS: LIPITOR 20 MG PO (21:06)
[2024-12-04] MEDS: NEURONTIN 100 MG PO (21:07)
[2024-12-04] MEDS: PROTONIX 40 MG PO (21:07)
[2024-12-04] MEDS: MELATONIN 5 MG PO (21:07)
[2024-12-04] MEDS: XALATAN OPHTHALMIC SOLUTION 1 DROP BOTH EYES (21:07)
[2024-12-04 23:56] VITALS: BP 174/90
[2024-12-05] VITALS: BP 178/70
[2024-12-05] MEDS: TORADOL 15 MG IV ×3 (01:30→12:52)
[2024-12-05 01:42] VITALS: BP 190/82
[2024-12-05] MEDS: APRESOLINE 5 MG IV (01:51)
[2024-12-05 03:16] VITALS: BP 171/79
[2024-12-05] MEDS: TYLENOL 1000 MG PO ×2 (05:34→12:52)
[2024-12-05] MEDS: ANCEF 10 IV ×2 (05:34→12:52)
[2024-12-05] MEDS: SYNTHROID 50 MCG PO (05:34)
[2024-12-05 06:00] VITALS: BMI 23.4
[2024-12-05 07:07] VITALS: BP 180/86
[2024-12-05] MEDS: SPIRIVA RESPIMAT 2.5 MCG 2 PUFF INH (07:28)
[2024-12-05] MEDS: LIDOCAINE 4% PATCH TOPICAL (08:13)
[2024-12-05] MEDS: NORVASC 5 MG PO (08:14)
[2024-12-05] MEDS: FLOMAX 0.8 MG PO (08:14)
[2024-12-05] MEDS: ZOLOFT 100 MG PO (08:14)
--- NOTE | 2024-12-05 08:14 | W.PN.HOSP.TC ---
Today's Communication/Plan
-
Adjust antihypertensives. IV antibiotics. Discharge plan
Assessment / Plan
Assessment / Plan
General: Acute on chronically ill and No Apparent Distress
HEENT: NormoCephalic, Moist mucous membranes and Atraumatic
Respiratory: Clear
Cardiac: S1/S2 and Regular Rhythm; No Murmur or Rub
GI: Soft, Non Tender, Non Distended and Normal Bowel Sounds; No Organomegaly
Rectal: Deferred by Provider
Musculoskeletal: No Clubbing, No Cyanosis and No Edema
Skin: left forearm rash covered in dressing
Neuro: AO x 3 and Nonfocal/grossly intact, generalized weakness
Psych: Calm
A/P:
Sepsis likely 2/2 staph bacteremia (MSSA) from lumbar spine discitis/spinal epidural abscess and ?lue:
On IV cefazolin
Repeated blood cultures from 12/01 no growth but pending
Blood cultures still positive from 11/25 and 11/27
MRSA colonized
Transthoracic Echo unremarkable
ID on board--> follow-up further ID recommendations
Discussed with daughter Claudia over the phone yesterday
Neurosurgery consult appreciated
ESR 99--> 90
CRP 84.8--> 44.1
Discharge planning once cleared by ID
Spinal epidural abscess/discitis osteomyelitis of L1-L2:
Continue IV antibiotic cefazolin
Neurosurgery consult appreciated
Continue Tylenol, Lidoderm patch, IV Toradol scheduled.
Hold diclofenac, tramadol.
Will restart gabapentin at a lower dose to see if he tolerates
Toxic metabolic encephalopathy:
Likely related to tramadol and gabapentin and some degree of hypoactive delirium. Ok to restart gabapentin at lower dose
Hold tramadol.
Monitor mental status
Abnormal UA:
Repeated urine culture per family request--> repeated urine culture and no growth.
History of left arm abscess - No drainable collection. No erythema.
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
- s/p wound culture
- +mrsa
-Wound consult
Hypokalemia
-Replete and trend
Primary HTN (hypotension resolved)
- Continue norvasc 5 mg p.o. daily. Add losartan 25 mg p.o. daily
- Off midodrine
- Off IV fluid
Right shoulder pain
- X-ray of the right shoulder reviewed
BPH With urinary retention
- continue tamulosin
-Bladder scan and straight cath protocol
Hypothyroid
- continue Synthroid 50 mcg
Mood disorder
-cont sertraline
History of multiple myeloma
-Not on any treatment at this point
Abnormal lung finding
moderate subpleural intralobular septal thickening/fibrotic change, without gary honeycombing. OP f/u recommended
DVT PPX -continue on Lovenox
Code status - Full Code
Time spent 35 minutes
Anticipated Discharge: 24 - 48 hours
Subjective/Interval History
-
Date of Service: December 05, 2024
No new complaints. Blood pressure elevated today. Afebrile
Objective Data
-
Labs:
Laboratory Results
12/05/24
06:59
WBC Pending
Hgb Pending
Hct Pending
Plt Count Pending
Sodium Pending
Potassium Pending
Chloride Pending
Carbon Dioxide Pending
BUN Pending
Creatinine Pending
Glucose Pending
Calcium Pending
Vital Signs:
Vital Signs
Temp Pulse Resp BP Pulse Ox
98.1 F 66 16 180/86 99
12/05/24 07:07 12/05/24 07:31 12/05/24 07:31 12/05/24 07:07 12/05/24 07:31
I&O
12/04/24 12/05/24 12/06/24
06:59 06:59 06:59
Intake Total 780 / 780 500 / 500
Output Total 1470 / 1470 1700 / 1700
Balance -690 / -690 -1200 / -1200
[2024-12-05 08:33] LABS: Hematocrit 37.2 % (39.0-52.0); Hemoglobin 11.9 g/dL (13.0-18.0); Mean Corp Hgb Conc. 32.0 g/dL (33.0-37.0); Mean Corpuscular Volume 90.3 fL (80.0-94.0); Platelet Count 506 10^3/uL (130-400); Red Cell Dist. Width 17.2 % (11.5-14.5)
[2024-12-05 08:40] LABS: Blood Urea Nitrogen 11 mg/dl (9-20); Calcium 8.5 mg/dl (8.4-10.2); Carbon Dioxide 27 mmol/L (22-30); Chloride 103 mmol/L (98-107); Estimated Creatinine Clearance 86 ml/min; Glucose 121 mg/dl (70-99); Potassium 5.0 mmol/L (3.5-5.1); Sodium 137 mmol/L (135-145); eGFR > 60.00
[2024-12-05] MEDS: COZAAR 25 MG PO (08:49)
--- NOTE | 2024-12-05 13:17 | W.PN.ID1 ---
Date of Service
Date of Service: December 05, 2024
Today's Communication
Continue antibiotics.
Assessment / Plan
MSSA bacteremia (sustained)
L2 epidural abscess
Suspected discitis/osteomyelitis L1-2
Elevated ESR / CRP
Multiple myeloma
HTN
Hx BPH
Hypothyroidism
HLD
Recommendations:
Continue cefazolin 2 g IV every 8 hours
Follow white count and temperature curve.
Follow blood cultures to assure clearance. Repeat blood cultures negative x [address] PICC line.
Patient to receive a 6-week course of IV antibiotics from first negative blood cultures (through 01/13/2025).
����������������������������������������������������������
Chief Complaint
-: Bacteremia (MSSA)
Subjective / Review of Systems
Review of Systems: No Fever and No Chills
Vital Signs / Physical Exam
Vital Signs
Vital Signs
Temp Pulse Resp BP Pulse Ox
98.1 F 66 16 180/86 99
12/05/24 07:07 12/05/24 07:31 12/05/24 07:31 12/05/24 08:49 12/05/24 07:31
Physical Exam
Constitutional: No Acute Distress, Comfortable, Chronically Ill and Non-toxic
Head: Normocephalic
Eyes: No Conjunctival Hemorrhage and Sclera Anicteric
Cardiovascular: S1/S2; Negative S3/S4
Gastrointestinal: Soft, Non Tender, Non Distended, Decreased Bowel Sounds, No Rebound and No Guarding
Extremities: Other (left forearm wound dressed.)
Skin: Warm
Psychological: Calm
Objective Data
Lab Data
Lab Results
12/05/24 06:59
12/05/24 06:59
ESR 90 mm/hour (0-20) H 12/03/24 07:53
Estimated Creat Clear 86 ml/min 12/05/24 06:59
Lactic Acid 1.6 mmol/L (0.7-2.0) 11/25/24 19:06
Total Bilirubin 0.3 mg/dl (0.2-1.3) 11/28/24 08:54
AST 20 U/L (17-59) 11/28/24 08:54
ALT 25 U/L (0-50) 11/28/24 08:54
Alkaline Phosphatase 67 U/L (38-126) 11/28/24 08:54
C-Reactive Protein 44.10 mg/L (0.0-10.00) H 12/03/24 07:53
Most recent labs reviewed.
Micro Results:
11/27/24 13:16 Blood Culture - Final
Blood/Venous S aureus-Methicillin Sensitive
Gram Stain - Final
12/01/24 14:48 Blood Culture - Preliminary
Blood/Venous No Growth in 72 hours- Final report to follow
12/01/24 14:19 Blood Culture - Preliminary
Blood/Venous No Growth in 72 hours- Final report to follow
11/27/24 07:04 Blood Culture - Final
Blood/Venous S aureus-Methicillin Sensitive
Gram Stain - Final
12/02/24 07:56 Urine Culture - Final
Urine NO GROWTH
11/27/24 14:11 Blood Culture - Final
Blood/Venous No Growth - Final Report
11/25/24 18:54 Wound Culture - Final
Arm - Left S aureus-Methicillin Sensitive
Gram Stain - Final
11/25/24 19:06 Blood Culture - Final
Blood/Venous S aureus-Methicillin Sensitive
Gram Stain - Final
11/25/24 19:17 Blood Culture - Final
Blood/Venous S aureus-Methicillin Sensitive
Gram Stain - Final
11/25/24 18:53 Urine Culture - Final
Urine
11/26/24 00:00 MRSA Screen - Final
Nose Staph aureus MRSA
Imaging:
11/28/2024 MRI lumbar spine: Left paracentral epidural abscess posterior to the L2 vertebral body. Suspicion for mild/early discitis/osteomyelitis at L1-2. No paraspinal fluid collection to indicate paraspinal abscess. Please see full dictation
for additional detail.
--- NOTE | 2024-12-05 14:20 | W.DCSUMMARY ---
Discharge Summary
Discharge Data
Date of Admission: 11/25/24
Date of Discharge: 12/05/24
Total time spent discharging patient (in min): 38
-
Pending Results: No
Hospital Course
Patient 79 years old with history of multiple myeloma not on treatment, hypertension, hyperlipidemia, hypothyroidism, came into the hospital with mental status changes and back pain and left upper extremity wound. Patient was found to have MSSA
bacteremia. ID consulted. MRI of the back showed evidence of L2 epidural abscess and discitis. Neurosurgery evaluated the patient and felt there was no need for surgical intervention. He had a transthoracic echo with no abnormalities. His
latest blood cultures from 12/01 are no growth. His back pain was able to be treated with NSAIDs and Tylenol and local Lidoderm patch and he did not tolerated any lower potency narcotics. ID cleared him for discharge. He is hemodynamically stable
and afebrile and he has significant improvement. He will be discharged to skilled rehab today.
Discharge duration: 38 minutes
Discharge Plan
-
Patient Disposition: Long-Term/SNF
Discharge Diagnosis/Procedures: Methicillin sensitive Staphylococcus aureus bacteremia. Spinal epidural abscess and discitis L2.
Diet: Low Cholesterol
Activity: As tolerated
Blood Work: Please PCP to order CBC, BMP within 1 week
Activity Restrictions/Additional Instructions:
Wound Care Instructions Left Arm Wound- Clean with Vashe moistened gauze for 5 minutes. Apply Honey Gel and cover with adaptic and dry dressing. Change daily and PRN for drainage or if soiled.
Moisturizer or Vaseline to dry skin on heels daily.
Follow up at wound care center call for an appointment.
Referrals:
Chris Smith DO [Active, Neurosurgery] - in three to four weeks
Johnie Torres DO [Active, Infectious Diseases] - in one to two weeks
Henrry Ryan MD [Family Provider, Internal Medicine]
Prescriptions:
New
lidocaine 4 % Adhesive Patch,Medicated
1 patch topical DAILY 14 Days Qty: 0 0RF
cefazolin 10 gram Recon Soln
2 g IV Q8H 42 Days Qty: 0 0RF
losartan 25 mg Tablet
25 mg PO DAILY 30 Days Qty: 30 0RF
gabapentin 100 mg Capsule
100 mg PO HS 30 Days Qty: 0 0RF
ibuprofen 600 mg tablet
600 mg PO TID PRN (Reason: Pain) Qty: 30 0RF
pantoprazole 40 mg Tablet,Delayed Release (Dr/Ec)
40 mg PO HS 30 Days Qty: 0 0RF
Continued
latanoprost 0.005 % drops
1 drp BOTH EYES HS
sertraline 100 mg Tablet
100 mg PO BID
amlodipine 5 mg Tablet
5 mg PO DAILY
simvastatin 40 mg Tablet
40 mg PO HS
tamsulosin 0.4 mg Capsule
0.4 mg PO BID
levothyroxine 50 mcg Tablet
50 mcg PO DAILY
Incruse Ellipta 62.5 mcg/actuation Blister With Device
1 inh INHALATION R DAILY
Fish Oil
1 cap PO BID
cyanocobalamin (vitamin B-12)
1 tab PO DAILY
Discontinued
methylprednisolone 4 mg Tablet
4 mg PO BID
sulfamethoxazole-trimethoprim 800-160 mg Tablet
1 tab PO BID
Patient Comments:
11/25/2024, filled on 11/19/2024 and instructed to take 1 tablet BID for 10 days.
pantoprazole 20 mg Tablet,Delayed Release (Dr/Ec)
20 mg PO HS
gabapentin 300 mg Capsule
300 mg PO BID
diclofenac sodium 75 mg tablet,delayed release (DR/EC)
75 mg PO BID
omeprazole 20 mg Tablet,Delayed Release (Dr/Ec)
20 mg PO DAILY
Discharge Orders:
Discharge Patient (As Directed); Ordered 12/05/24
Ordered By: Andrzej Hyatt
Discharge Date and Time
Discharge Date/Time: 12/05/24 17:13
Print Language: [id number]
--- NOTE | 2024-12-05 14:48 | CM ---
Chart reviewed and patient has been cleared for discharge, case preparer and liner spoke with admissions and there is a bed available for patient today, script for IV ABX along with PICC line information faxed to [facility].
[facility]
Report [phone]
[2024-12-05 15:08] VITALS: BP 128/77
== END 2024-12-05 17:13 | DRG 871 ==
LOC: 4 WEST ACU 22:07
PROVIDERS: Hospitalist; Internal Medicine Infectious Disease; Nurse Practitioner; ADMITTING PHYSICIAN Internal Medicine; ATTENDING PHYSICIAN Hospitalist; EMERGENCY PHYSICIAN Emergency Medicine; FAMILY PHYSICIAN Internal Medicine; OTHER PHYSICIAN Hospitalist; OTHER PHYSICIAN Neurological Surgery
DX: A41.01 Sepsis due to Methicillin susceptible Staphylococcus aureus (principal); G03.9 Meningitis, unspecified; G06.1 Intraspinal abscess and granuloma; N39.0 Urinary tract infection, site not specified; L02.414 Cutaneous abscess of left upper limb; M46.46 Discitis, unspecified, lumbar region; E03.9 Hypothyroidism, unspecified; Z85.79 Personal history of other malignant neoplasms of lymphoid, hematopoietic and related tissues; Z79.890 Hormone replacement therapy; I10 Essential (primary) hypertension; E78.00 Pure hypercholesterolemia, unspecified; K21.9 Gastro-esophageal reflux disease without esophagitis; N40.0 Benign prostatic hyperplasia without lower urinary tract symptoms; Z87.891 Personal history of nicotine dependence; N41.9 Inflammatory disease of prostate, unspecified
CPT/HCPCS: 70450; 71045; 72157; 72158; 72220; 73030; 74176; 80048; 80053; 80202; 81003; 81015; 83605; 84484; 85025; 85027; 85652; 86140; 87040; 87070; 87086; 87147; 87154; 87186; 87205; 93005; 93306; 94640; 96361; 96374; 97116; 97162; 97530; 99285; A9575